=== PATIENT | female | born 1940 | race Caucasian/White ===

== ENCOUNTER 2017-10-07 09:16 | Inpatient (IN) ==
[2017-10-07 10:23] LABS: Mean Cell Volume 92.6 fL (80.0-100.0); Mean Corpuscular HGB Conc 33.9 g/dL (31.0-36.0); Mean Corpuscular Hemoglobin 31.4 pg (26.0-34.0); Platelet Count 252 K/mcL (140-440); RBC 4.73 M/mcL (4.00-5.20); Red Cell Distribution Width 13.5 % (11.5-14.5)
--- NOTE | 2017-10-07 10:28 | Cat Scan Report ---
CLINICAL INFORMATION: Trauma - on Plavix COMPARISON: 03/08/[address] TECHNIQUE: 2.5 mm helical slices were obtained in the skull base to vertex. Following reconstruction, axial reformatted images were reviewed at bone and parenchymal windows. The exam was performed using radiation dose optimization techniques including, but not limited to, automated exposure control, adjustment of the mA and/or kV according to patient size and use of iterative reconstruction technique. FINDINGS: The ventricles, sulci, fissures, and cisterns are symmetrically enlarged compatible with mild age-related atrophy. No subdural hemorrhage or other extra-axial fluid collections identified. Moderate chronic ischemic changes in the deep cerebral white matter similar previous study. There is no intracerebral hemorrhage, mass effect, edema or other acute finding. Bone windows show no fracture or other osseous abnormality IMPRESSION: Mild atrophy and chronic ischemic changes in the deep cerebral white matter typical for age and similar to previous study. There is no intracerebral hemorrhage or other post traumatic change. Interpreted and Authenticated by: Abdirahman Crawford 10/07/17
[2017-10-07 10:40] LABS: ALT/SGPT 9 U/l (0-40); Albumin 4.5 gm/dL (3.2-5.2); Alkaline Phosphatase 62 U/L (39-117); Blood Urea Nitrogen 31 mg/dl (8-23)
[2017-10-07 11:04] LABS: Lymphocytes % 6 % (15-49); Monocytes % (Manual) 2 % (1-12); Platelet Estimate NORMAL (NORMAL); RBC Morphology NORMAL (NORMAL); Segmented Neutrophils % 92 % (38-78)
--- NOTE | 2017-10-07 11:06 | Emergency Department Note ---
Fall HPI - General Chief Complaint: Fall Stated Complaint: Fall, Decreased LOC Time Seen by Provider: 10/07/17 11:02 Source: EMS Mode of arrival: EMS - History of Present Illness HPI Narrative: Patient fell this morning striking her commode. She was found by the rounding person at her care facility at [place]. She fell face first causing a laceration to the left side of her face and apparently the right shoulder was bruised as well. She has multiple other bruises older than not many new that are related to being on anticoagulation. After being found she was very spacey and unable to talk as usual. She was also unable to move where she usually could transfer from bed to commode. She is also been drooling. She has been frozen as if bent forward. She was unable to obey commands and for these reasons was sent to the emergency room. Now in the emergency room seems to be understanding and responding. Patient was able to communicate that she thinks she may have had a stroke. Yesterday her conversations were completely appropriate according to her caregiver her knows her well. Additional history was difficult to get from the patient, most of the above information was from the caregiver. She was not able to talk very much or in a volume that was understandable are audible. - Related Data Home Medications Medication Instructions Recorded Confirmed Anoro Ellipt 1 puff INH DAILY 08/15/17 10/07/17 Benztropine [Cogentin] 1 mg PO BID 08/15/17 10/07/17 Budesonide [Pulmicort] 3 puff INH BID 08/15/17 10/07/17 Calcium Carbonate 600 mg PO BID 08/15/17 10/07/17 Celecoxib [Celebrex] 100 mg PO HS 08/15/17 10/07/17 Cetirizine [ZyrTEC] 10 mg PO DAILY 08/15/17 10/07/17 Cholecalciferol (Vitamin D3) 4,000 unit PO DAILY 08/15/17 10/07/17 [Vitamin D] Clopidogrel Bisulfate [Plavix] 75 mg PO DAILY 08/15/17 10/07/17 Donepezil [Aricept] 10 mg PO DAILY 08/15/17 10/07/17 Famotidine [Pepcid] 20 mg PO DAILY 08/15/17 10/07/17 Gabapentin [Neurontin] 100 mg PO BID 08/15/17 10/07/17 Levalbuterol Tartrate 15 gm IH BID 08/15/17 10/07/17 [Levalbuterol Tartrate Hfa] Montelukast [Singular] 10 mg PO HS 08/15/17 10/07/17 OLANZapine [Zyprexa] 15 mg PO HS 08/15/17 10/07/17 Simvastatin [Zocor] 10 mg PO DAILY 08/15/17 10/07/17 Spironolactone [Aldactone] 25 mg PO DAILY 08/15/17 10/07/17 Verapamil [Calan Sr] 180 mg PO DAILY 08/15/17 10/07/17 Previous Rx's Medication Instructions Recorded acetaminophen 160 mg/5 mL oral See Dose Instructions PO .COMPLEX 04/20/15 suspension PRN 30 Days #900 ml lactase 9,000 unit chewable tablet 9,000 unit PO TID PRN #30 tab 05/23/15 traMADol [Ultram] 50 mg PO Q6HP PRN #20 tab 04/16/16 Allergies Allergy/AdvReac Type Severity Reaction Status Date / Time povidone-iodine Allergy Severe Unknown Verified 10/07/17 09:25 [From Betadine] soap [From Betadine] Allergy Severe Unknown Verified 10/07/17 09:25 Erythromycin Base Allergy Intermediate Vomiting Verified 10/07/17 09:25 Hydromorphone [From Dilaudid] Allergy Intermediate Unconscious Verified 09:25 levofloxacin [From Levaquin] Allergy Intermediate Vomiting Verified 10/07/17 09: 25 meperidine [From Demerol] Allergy Intermediate Unconscious Verified 10/07/17 09: 25 Penicillins Allergy Intermediate Vomiting Verified 10/07/17 09:25 pravastatin [From Pravachol] Allergy Intermediate Unknown Verified 10/07/17 09: 25 sertraline [From Zoloft] Allergy Intermediate Shakiness Verified 10/07/17 09:25 aspirin Allergy Mild Abdominal Verified 10/07/17 09:25 Pain Procaine [From Novocain] Allergy Mild Redness of Verified 10/07/17 09:25 Skin Sulfa (Sulfonamide Allergy Mild Redness of Verified 10/07/17 09:25 Antibiotics) Skin venlafaxine [From Effexor] Allergy Mild Shakiness Verified 12/19/17 09:25 Review of Systems Review of Systems: General: No reported fevers or chills. CV: No reported chest pains or palpitations. Pulmonary: No reported cough or shortness of breath. She does have some chronic phlegm in the back of her mouth related to nighttime mouth breathing and sounded gurgly this morning. She uses 2 L/min of oxygen at night during sleep. GI: No abdominal pain or nausea or vomiting. She does have some chronic constipation. Her last bowel movement 2 days ago was medium hard. : No reported dysuria. She does have some urge incontinence if she cannot make it in time. Derm: No new or unusual rashes. Neurologic: No newly reported headaches. See HPI in that she has had significant weakness today. Endocrine: Chronic fatigue. Pathology: Chronic ease of bruising. Older bruises on the anterior chest reportedly due to a water bottle that she drinks from that has a spout that sticks out and her severe tremors caused this. Fall PMH - Past Medical History [facility] Narrative: Patient was recently in and has no significant change in her past medical history that includes below. Medical history: Reports: arthritis, atrial fibrillation, cancer (cervical), CHF , COPD, dementia, hyperlipidemia, hypertension. Denies: coronary artery disease , CVA, diabetes, GERD, myocardial infarction, thyroid disease, TIA Reports: Parkinson's Disease Psychiatric history: Reports: anxiety, depression Family history: Reports: other (Acute [place] Father age 56; sister sudden cardiac 39.) - Social History smoking status: Former smoker Alcohol use: Reports: None Physical Exam General appearance: in no apparent distress, lethargic, other (Slowed responses and limited changes in facial expressions.) Head: atraumatic, normocephalic, other (She does have a 5 mm laceration at the anterior left cheekbone area underneath the left eye.) Eye: Present: normal appearance, PERRL, EOMI. Absent: scleral icterus, conjunctival injection ENT: mucous membranes dry, other (Moderate amount of thickened mucus in the posterior oropharynx running up and down.) Neck: Present: trachea midline Respiratory: Present: normal lung sounds bilaterally. Absent: respiratory distress, wheezes, stridor, accessory muscle use, prolonged expiratory phase Cardiovascular: Present: regular rate, normal rhythm. Absent: systolic murmur, diastolic murmur Abdominal: Present: soft. Absent: distention, tenderness, guarding, rebound, rigidity, organomegaly, mass Extremities: Absent: pedal edema, pretibial edema Neurological: Present: other (She states that she has normal sensation equal lateral on her forehead and sides of her cheeks when tested. Same for forearms. It is hard to get a response out of her for her lower extremities. She is able to move her toes but only some upon command but bilateral and equal. She seems to state that the sensation seems normal in both sides. She is able to plantar flex against resistance equally but hardly able to dorsiflex at all either side. She is unable to raise her knees on command. She is unable to squeeze my hands except for minimally bilaterally.) Psychiatric: Present: flat affect Skin: Present: warm, dry, other (Multiple contusions in various degrees of healing as well as ecchymoses, senile, and the forearms. There is a fresher bruise on the right AC joint area of the top of the right shoulder measuring 2 inches across. There is a 4-5 mm laceration on her anterior left cheek. This is repaired with cleaning and then with skin/glue adhesive.) Course Vital Signs Temperature 97.7 F 10/07/17 09:17 Pulse Rate 88 10/07/17 09:17 Respiratory Rate 14 10/07/17 09:17 Blood Pressure 188/105 10/07/17 09:17 Pulse Oximetry (%) 96 10/07/17 09:17 Temperature 97.7 F 10/07/17 09:17 Pulse Rate 77 10/07/17 11:31 Respiratory Rate 13 10/07/17 12:31 Blood Pressure 104/54 10/07/17 12:31 Pulse Oximetry (%) 94 10/07/17 11:31 Fall - MDM Narrative Medical decision making narrative: Above individual was brought to the emergency room with her caregiver with a significant change in her mental status, weakness new obtundation that seems to have resolved. There she was found to have an elevated white count, severe dehydration, significant weakness, and some intermittent bradycardia. She did not meet a sepsis or SIRS criteria with normal hypoxia, normal tension, and most of the time and a normal pulse rate. With the degree of severity of her changes, it was felt that it would be necessary for her to have slow hydration ( history of CHF), consideration for rule out ischemic CVA, or significant bradycardia. - Lab Data Result diagrams: 10/07/17 09:51 10/07/17 09:51 Lab Results 10/07/17 10/07/17 10/07/17 Range/Units 09:51 09:51 09:51 WBC 18.2 H (4.5-11.0) K/mcL RBC 4.73 (4.00-5.20) M/mcL Hgb 14.9 (12.0-15.0) g/dL Hct 43.8 (36.0-48.0) % MCV 92.6 (80.0-100.0) fL MCH 31.4 (26.0-34.0) pg MCHC 33.9 (31.0-36.0) g/dL RDW 13.5 (11.5-14.5) % Plt Count 252 (140-440) K/mcL MPV 9.9 (7.4-10.4) fL Total Counted 100 Seg Neutrophils % 92 H (38-78) % Band Neutrophils % Not Reportable Lymphocytes % 6 L (15-49) % Monocytes % (Manual) 2 (1-12) % Platelet Estimate Normal (NORMAL) RBC Morphology Normal (NORMAL) VBG Lactic Acid 1.7 (0.5-2.2) mmol/L Sodium 141 (133-145) mmol/L Potassium 4.0 (3.3-5.1) mmol/L Chloride 99 (96-108) mmol/L Carbon Dioxide 23 (22-30) mmol/L Anion Gap 19.0 H (8-16) BUN 31 H (8-23) mg/dl Creatinine 1.0 (0.6-1.1) mg/dl GFR Calculation 55 Glucose 127 H (70-105) mg/dL Calcium 10.9 H (8.6-10.4) mg/dl Total Bilirubin 0.8 (0.0-1.0) mg/dL AST 18 (0-37) U/l ALT 9 (0-40) U/l Alkaline Phosphatase 62 (39-117) U/L Total Protein 6.8 (5.9-8.4) gm/dL Albumin 4.5 (3.2-5.2) gm/dL Globulin 2.3 (2.2-3.7) gm/dL Albumin/Globulin Ratio 2.0 (1.0-2.3) Urine Color Urine Appearance Urine pH (5.0-9.0) Ur Specific [place] (1.000-1.035) Urine Protein (NEG) mg/dL Urine Glucose (UA) (NEG) mg/dL Urine Ketones (NEG) mg/dL Urine Occult Blood (<0.03) mg/dL Urine Nitrate (NEG) Urine Bilirubin (NEG) mg/dL Urine Urobilinogen (NEG) mg/dL Ur Leukocyte Esterase (NEG) /uL Urine RBC (0-1) /hpf Urine WBC (0-4) /hpf Ur Squamous Epith Cells (0-4) /hpf Amorphous Crystals (0) /hpf Urine Bacteria (0) /hpf Hyaline Casts (0-2) /lpf Urine Mucus (0) /hpf Ur Culture Indicated? 10/07/17 Range/Units 12:32 WBC (4.5-11.0) K/mcL RBC (4.00-5.20) M/mcL Hgb (12.0-15.0) g/dL Hct (36.0-48.0) % MCV (80.0-100.0) fL MCH (26.0-34.0) pg MCHC (31.0-36.0) g/dL RDW (11.5-14.5) % Plt Count (140-440) K/mcL MPV (7.4-10.4) fL Total Counted Seg Neutrophils % (38-78) % Band Neutrophils % Lymphocytes % (15-49) % Monocytes % (Manual) (1-12) % Platelet Estimate (NORMAL) RBC Morphology (NORMAL) VBG Lactic Acid (0.5-2.2) mmol/L Sodium (133-145) mmol/L Potassium (3.3-5.1) mmol/L Chloride (96-108) mmol/L Carbon Dioxide (22-30) mmol/L Anion Gap (8-16) BUN (8-23) mg/dl Creatinine (0.6-1.1) mg/dl GFR Calculation Glucose (70-105) mg/dL Calcium (8.6-10.4) mg/dl Total Bilirubin (0.0-1.0) mg/dL AST (0-37) U/l ALT (0-40) U/l Alkaline Phosphatase (39-117) U/L Total Protein (5.9-8.4) gm/dL Albumin (3.2-5.2) gm/dL Globulin (2.2-3.7) gm/dL Albumin/Globulin Ratio (1.0-2.3) Urine Color [place] Urine Appearance Hazy Urine pH 5.0 (5.0-9.0) Ur Specific [place] 1.028 (1.000-1.035) Urine Protein 100 A (NEG) mg/dL Urine Glucose (UA) Negative (NEG) mg/dL Urine Ketones 20 A (NEG) mg/dL Urine Occult Blood Neg (<0.03) mg/dL Urine Nitrate Neg (NEG) Urine Bilirubin Neg (NEG) mg/dL Urine Urobilinogen 2.0 A (NEG) mg/dL Ur Leukocyte Esterase Neg (NEG) /uL Urine RBC 0 (0-1) /hpf Urine WBC 2 (0-4) /hpf Ur Squamous Epith Cells 1 (0-4) /hpf Amorphous Crystals Few A (0) /hpf Urine Bacteria 0 (0) /hpf Hyaline Casts 24 H (0-2) /lpf Urine Mucus Many A (0) /hpf Ur Culture Indicated? No Disposition Pt seen by [employer]/PA only: No Clinical Impression: Weakness, Dehydration, Chronic atrial fibrillation, Parkinson disease, Bradycardia Mental status change Qualifiers: Altered mental status type: stupor Qualified Code(s): R40.1 - Stupor Leukocytosis Qualifiers: Leukocytosis type: leukemoid reaction Qualified Code(s): D72.823 - Leukemoid reaction Disposition: Xfer As Inpt ([facility]) Condition: Serious Referrals: Shayla Shen MD [Primary Care Provider] -
--- NOTE | 2017-10-07 12:11 | XRay Report ---
CLINICAL INFORMATION: Elevated white blood cell count COMPARISON: 08/15/2017 FINDINGS: Heart size, mediastinum and pulmonary vessels are normal. Lungs are clear. No effusions. Bones soft tissues normal IMPRESSION: Negative Interpreted and Authenticated by: Abdirahman Crawford 10/07/17
[2017-10-07 13:04] LABS: Appearance,Urine HAZY; Bacteria,Urine 0 /hpf (0); Bilirubin,Urine NEG (NEG); Color,Urine AMBER; Glucose,Urine (UA) NEGATIVE (NEG); Leukocyte Esterase,Urine NEG /uL (NEG); Mucus,Urine MANY /hpf (0); Nitrate,Urine NEG (NEG); Protein,Urine 100 mg/dL (NEG); Specific Gravity,Urine 1.028 (1.000-1.035); Urine Amorphous Crystals FEW /hpf (0); Urine Blood NEG mg/dL (<0.03); Urine Hyaline Cast 24 /lpf (0-2); Urine RBC 0 /hpf (0-1); Urine Squamous Epithelial Cell 1 /hpf (0-4); Urine WBC 2 /hpf (0-4)
--- NOTE | 2017-10-07 13:46 | Internal Med History&Physical ---
Medical - H&P: HPI Patient information: Note initiated : 10/07/17 at 1:39 pm Service Date, if different from initiated Date: [] Patient: Erica Gomez a 77 y/o F admitted on 10/07/17 for Fall, Decreased LOC. Chief Complaint: [] History of present illness: Ms. Gomez is a 77 year old female who lives at [facility]. She reportedly had a fall today in the bathroom, falling forward and hitting her face on the toilet. She was noted to have altered mental status by the staff, and sent to the emergency room for evaluation. She is much less able to talk and follow commands than is her baseline. After arriving to the floor, the patient was actually quite awake and alert, and able to answer most questions. She has a very severe tremor, both resting and with intention. She reports this is due to her severe Parkinson's. She does remember that she fell today, but cannot recall exactly why. She says she had a little trouble thinking straight after striking her head, but thinking is clearer currently. Her main complaint currently is that she is quite insistent that she needs MiraLAX right now, as she is constipated. She cannot tell me when her last bowel movement was. She says her urine has been darker than usual the last few days, but she denies decreased intake of food or liquids. She denies recent fever or chills, headaches or dizziness, blurry vision, ear pain or discharge, sinus pain, sore throat or cough. She denies chest pain or palpitations, shortness of breath. She says she is having some mild abdominal discomfort, which she blames on constipation. She denies nausea or vomiting, diarrhea, bright red blood per rectum. She denies painful urination. The ER MD tells me that the last time she was here, [facility] wanted her moved to a higher level of care, but the patient declined and requested physical therapy instead. Past medical history: Parkinson's disease, with severe tremor. COPD arthritis Atrial fibrillation Cervical cancer Congestive heart failure COPD Dementia? Cognitive dysfunction. Hyperlipidemia Hypertension Depression and anxiety Past surgical history: Appendectomy, MIRA/BSO, tonsillectomy Current medications: (Per recent neurology note and [facility] MAR) Anoro elliptica 62.525 Benztropine 1 mg nightly Calcium plus D1 tab twice daily Celebrex 100 mg nightly Cetirizine 10 mg daily Plavix 75 mg daily Cranberry tabs daily Aricept 10 mg daily Pepcid 20 mg daily next line gabapentin 100 mg twice daily Xopenex inhaler Pulmicort inhaler 3-4 puffs twice daily Singulair 10 mg nightly Mucinex 600 mg 1-2 twice daily as needed (Olanzapine recently changed to Depakote ?) Pramipexole 0.25 mg 3 times daily Simvastatin 10 mg half tab daily Spironolactone 25 mg half tab daily Tramadol 50 mg 3 times daily as needed Tums 500 mg 2 daily Verapamil 180 mg daily Vitamin D 2000 units daily Home oxygen? Acetaminophen liquid 80-160 mg every 4 hours as needed Dairy a 3000 units 3 times daily as needed Simethicone 125 mg as needed bloating limit to 4 per day Hutchinson's cough drops as needed Nitroglycerin 0.4 mg half tab sublingual as needed Tramadol 50 mg 3 times daily as needed Miconazole 2% powder applied twice daily as needed yeast infection Allergies: As noted below Family history: Father had NM at age 56. Sister had sudden at age 39. She believes her mother with cancer. Social history: Former smoker, saying she quit many years ago.. Does not use alcohol or drugs. Lives at [facility]. She reportedly has no family in the area. She says her only relative is her nephew who lives in [place]. She cannot recall his name at this moment. She would like him to act as her POA, but she does not have a formal living will. She is a retired nurse. Medical - H&P: Meds Home Medications Medication Instructions Recorded Confirmed Type acetaminophen 160 mg/5 mL oral See Dose Instructions PO .COMPLEX 04/20/15 Rx suspension PRN 30 Days #900 ml lactase 9,000 unit chewable tablet 9,000 unit PO TID PRN #30 tab 05/23/15 Rx traMADol [Ultram] 50 mg PO Q6HP PRN #20 tab 04/16/16 10/07/17 Rx Anoro Ellipt 1 puff INH DAILY 08/15/17 10/07/17 History Benztropine [Cogentin] 1 mg PO BID 08/15/17 10/07/17 History Budesonide [Pulmicort] 3 puff INH BID 08/15/17 10/07/17 History Calcium Carbonate 600 mg PO BID 08/15/17 10/07/17 History Celecoxib [Celebrex] 100 mg PO HS 08/15/17 10/07/17 History Cetirizine [ZyrTEC] 10 mg PO DAILY 08/15/17 10/07/17 History Cholecalciferol (Vitamin D3) 4,000 unit PO DAILY 08/15/17 10/07/17 History [Vitamin D] Clopidogrel Bisulfate [Plavix] 75 mg PO DAILY 08/15/17 10/07/17 History Donepezil [Aricept] 10 mg PO DAILY 08/15/17 10/07/17 History Famotidine [Pepcid] 20 mg PO DAILY 08/15/17 10/07/17 History Gabapentin [Neurontin] 100 mg PO BID 08/15/17 10/07/17 History Levalbuterol Tartrate 15 gm IH BID 08/15/17 10/07/17 History [Levalbuterol Tartrate Hfa] Montelukast [Singular] 10 mg PO HS 08/15/17 10/07/17 History OLANZapine [Zyprexa] 15 mg PO HS 08/15/17 10/07/17 History Simvastatin [Zocor] 10 mg PO DAILY 08/15/17 10/07/17 History Spironolactone [Aldactone] 25 mg PO DAILY 08/15/17 10/07/17 History Verapamil [Calan Sr] 180 mg PO DAILY 08/15/17 10/07/17 History Allergies Allergy/AdvReac Type Severity Reaction Status Date / Time povidone-iodine Allergy Severe Unknown Verified 10/07/17 09:25 [From Betadine] soap [From Betadine] Allergy Severe Unknown Verified 10/07/17 09:25 Erythromycin Base Allergy Intermediate Vomiting Verified 10/07/17 09:25 Hydromorphone [From Dilaudid] Allergy Intermediate Unconscious Verified 09:25 levofloxacin [From Levaquin] Allergy Intermediate Vomiting Verified 10/07/17 09: 25 meperidine [From Demerol] Allergy Intermediate Unconscious Verified 10/07/17 09: 25 Penicillins Allergy Intermediate Vomiting Verified 10/07/17 09:25 pravastatin [From Pravachol] Allergy Intermediate Unknown Verified 10/07/17 09: 25 sertraline [From Zoloft] Allergy Intermediate Shakiness Verified 10/07/17 09:25 aspirin Allergy Mild Abdominal Verified 10/07/17 09:25 Pain Procaine [From Novocain] Allergy Mild Redness of Verified 10/07/17 09:25 Skin Sulfa (Sulfonamide Allergy Mild Redness of Verified 10/07/17 09:25 Antibiotics) Skin venlafaxine [From Effexor] Allergy Mild Shakiness Verified 10/07/17 09:25 Medical - H&P: Exam - Constitutional Vitals: Temp Pulse Resp BP Pulse Ox 97.7 F 131 H 14 105/52 97 10/07/17 09:17 10/07/17 13:02 10/07/17 13:02 10/07/17 13:02 10/07/17 13:02 Heart rate 57-131. Blood pressure 113/71 to 188/105 On exam, the patient is awake and alert, but does seem a bit distressed by her severe upper extremity tremor. Head: Is normocephalic. There is a bruise and a laceration over her left zygoma. Ears: TMs and canals are clear. Eyes: Pupils are round and reactive, EOMI. Conjunctivae are injected. Pharynx: Appears clear. Mucosa is fairly normal in appearance. Dentition is in fair condition. neck: Shows no obvious JVD, lymphadenopathy, thyromegaly, bruits. Cardiac exam: Shows lightly irregular rhythm, without obvious murmurs, rubs, gallops. Lungs: She has generally decreased breath sounds, with scattered crackles. There are no definite rhonchi or wheezes heard. Abdomen: Is soft without obvious tenderness. Bowel sounds are active. There is no guarding or rebound. Extremities: Ankles are a bit puffy, but no significant edema. There is no cyanosis or clubbing noted. Neurologic exam: The patient is awake and alert, and answers most questions appropriately. The only question she really could not answer is the name of her nephew. She does have a masked feces, but otherwise cranial nerves appear grossly intact. Motor exam shows severe resting and intention tremor of both hands and arms. She has trouble lifting her arms to to a cerebellar exam. She appears to have generalized weakness. She has trouble lifting either leg, but can move her toes on command. Medical - H&P: Reslt - Labs CBC & Chem 7: 10/07/17 09:51 10/07/17 09:51 Labs: Short CBC 10/07/17 Range/Units 09:51 WBC 18.2 H (4.5-11.0) K/mcL Hgb 14.9 (12.0-15.0) g/dL Hct 43.8 (36.0-48.0) % Plt Count 252 (140-440) K/mcL BMP 10/07/17 09:51 Sodium 141 Potassium 4.0 Chloride 99 Carbon Dioxide 23 BUN 31 H Creatinine 1.0 Glucose 127 H Calcium 10.9 H Liver Function 10/07/17 Range/Units 09:51 Total Bilirubin 0.8 (0.0-1.0) mg/dL AST 18 (0-37) U/l ALT 9 (0-40) U/l Alkaline Phosphatase 62 (39-117) U/L Albumin 4.5 (3.2-5.2) gm/dL Urine 10/07/17 Range/Units 12:32 Urine Color Sallie Urine Appearance Hazy Urine pH 5.0 (5.0-9.0) Ur Specific [place] 1.028 (1.000-1.035) Urine Protein 100 A (NEG) mg/dL Urine Glucose (UA) Negative (NEG) mg/dL October 07: CBC: White blood cell count 18,000, hemoglobin 14.9, hematocrit 44, platelets 252,000. 92% neutrophils. Lactic acid is normal at 1.7 Pro-calcitonin is normal at less than 0.05 Chemistries: Notable for anion gap of 19, BUN of 31, creatinine 1.0, glucose 127 Total calcium is high at 10.9, other LFTs normal. Ionized calcium is normal at 1.24 BNP is elevated at 1366 Troponin is normal at less than 0.01 Urinalysis: Shows 100 mg of protein, 20 ketones, negative leukocyte esterase, negative nitrites, 24 hyaline casts. EKG: Shows atrial fibrillation with a rate of about 75. T waves are mildly inverted in leads V4 through V6. These changes are less marked when compared to August 15, 2017. Chest x-ray: Is read as no acute disease. Head CT: Shows mild atrophy and chronic ischemic changes typical for age. No hemorrhages. Medical - H&P: A/P (1) Atrial fibrillation, chronic Current visit: Yes Status: Chronic (2) COPD (chronic obstructive pulmonary disease) Current visit: No Status: Chronic (3) Parkinson disease, symptomatic Current visit: No Status: Chronic (4) Mental status change Current visit: Yes Status: Acute (5) Dehydration Current visit: Yes Status: Acute (6) Leukocytosis Current visit: Yes Status: Acute - Narrative A/P Narrative: #1. Neurologic. Patient presents with altered mental status. She has known Parkinson's disease and associated dementia, as well as depression and anxiety. Her mental status could be due to these conditions or the medication she takes for them. She could also have missed some Parkinson's medications and had worsening muscle rigidity causing her fall. Certainly occult infection may be the cause of mental status changes and leukocytosis. She does have some symptoms consistent with possible stroke. -Admit for closer monitoring and workup. - If other workup is unrevealing, consider MRI with flow studies to look at cerebral arterial flow and to look for signs of occult stroke. Level of alertness actually sounds quite a bit improved over what it was in the emergency room. -Blood and urine cultures are pending. -Consider repeat chest x-ray after hydration. -Consider empiric antibiotics, in view of leukocytosis. Alternatively, recheck CBC in the morning. -IV fluids for signs and symptoms of dehydration. -Serial neuro checks. -Case management consult regarding patient reportedly needing a higher level of care living situation. -Physical therapy and occupational therapy evaluations. -Parkinson's disease. Resume usual Parkinson's medications. It appears neurology suggested changing olanzapine to Depakote. It is not clear if that has been done at [facility] , so I will make that change today. (Olanzapine can actually cause parkinsonism ) History of dementia. -Continue Aricept. 2. Infectious disease. Rule out occult infection. -Blood and urine cultures are pending. Consider follow-up chest x-ray. 3. Cardiac. Chronic atrial fibrillation. -Monitor on telemetry. Reported history of CHF.-Stop Celebrex, as this is contraindicated in CHF. -Continue Plavix. Spironolactone is on hold regarding dehydration. Verapamil would be an unusual choice for someone with heart failure. Try to obtain old records, or consider follow-up echocardiogram. Hypertension. -Blood pressure is currently running a bit low. Continue to monitor. Resume the verapamil as tolerated. 4. Pulmonary. COPD and probable asthma. Hold inhalers. Add ipratropium, Xopenex, budesonide nebulizers. oxygen as needed, pulmonary toilet. 5. Allergies? Hold cetirizine for now. continue Singulair. 6. Psychiatric. I assume she is on Zyprexa for depression, or possibly for dementia related side effects. I will change this to Depakote, as per neurology. 7. CODE STATUS: Patient states she would like to remain a full code, but would not want to be on long-term life support. She says she would like her nephew, who lives in [place], to act as her POA. Unfortunately, she cannot recall his name at the moment. We are trying to track that down. 8. DVT prophylaxis: Subcu heparin. This visit took approximately 60 minutes, to review the patient's case with the ER MD, review her records and test results, interview and examine her, and write orders
[2017-10-07] MEDS ORDERED: DOCUSATE SODIUM 100 MG CAPSULE PO PRN (14:09)
[2017-10-07] MEDS ORDERED: ACETAMINOPHEN 325 MG TABLET PO PRN (14:09)
[2017-10-07] MEDS ORDERED: ONDANSETRON 4 MG/2 ML VIAL IV PRN (14:09)
[2017-10-07] MEDS ORDERED: MAGNESIUM HYDROXIDE 30 ML ORAL.SUSP PO PRN (14:09)
[2017-10-07] MEDS: DEXTROSE 5%-1/2NS 1,000 ML IV SCH (14:28)
[2017-10-07] MEDS ORDERED: LACTASE 1 TABLET PO PRN (15:00)
[2017-10-07] MEDS: traMADol 50 MG TABLET PO PRN ×2 (15:12→19:57)
[2017-10-07] MEDS ORDERED: MAGNESIUM HYDROXIDE 30 ML ORAL.SUSP PO ONE (16:46)
[2017-10-07] MEDS ORDERED: POLYETHYLENE GLYCOL 3350 17 GM PACKET PO PRN (16:47)
[2017-10-07] MEDS: BUDESONIDE 0.5 MG/2 ML AMPUL.NEB NEB SCH (19:14)
[2017-10-07] MEDS: LEVALBUTEROL 0.63 MG/3 ML AMPUL.NEB NEB SCH (19:14)
[2017-10-07] MEDS: IPRATROPIUM 2.5 ML AMPUL.NEB NEB SCH (19:14)
[2017-10-07] MEDS: CALCIUM CARBONATE 500 MG TAB.CHEW CHEWED SCH (19:57)
[2017-10-07] MEDS: DIVALPROEX SODIUM 250 MG TAB.ER.24H PO SCH (19:57)
[2017-10-07] MEDS: GABAPENTIN 100 MG CAPSULE PO SCH (19:57)
[2017-10-07] MEDS: BENZTROPINE 1 MG TABLET PO SCH (19:58)
[2017-10-07] MEDS: HEPARIN 5,000 UNIT/ML VIAL SQ SCH ×2 (19:58→20:17)
[2017-10-07] MEDS: MONTELUKAST 10 MG TABLET PO SCH (22:35)
[2017-10-07] MEDS: CELECOXIB 100 MG CAPSULE PO SCH (22:35)
[2017-10-08] MEDS: DEXTROSE 5%-1/2NS 1,000 ML IV SCH ×3 (00:37→20:33)
[2017-10-08] MEDS: LEVALBUTEROL 0.63 MG/3 ML AMPUL.NEB NEB SCH ×4 (01:01→19:25)
[2017-10-08] MEDS: IPRATROPIUM 2.5 ML AMPUL.NEB NEB SCH ×4 (01:01→19:25)
[2017-10-08] MEDS: BUDESONIDE 0.5 MG/2 ML AMPUL.NEB NEB SCH ×3 (06:58→19:25)
--- NOTE | 2017-10-08 08:02 | XRay Report ---
CLINICAL INFORMATION: Elevated white blood cell count COMPARISON: 10/07/2017 FINDINGS: Heart size, mediastinum and pulmonary vessels are normal. Lungs are clear - no infiltrates have developed. No effusions. IMPRESSION: Negative Interpreted and Authenticated by: Abdirahman Crawford 10/08/17
[2017-10-08 08:47] LABS: Basophils # (Auto) 0 K/mcL (0.0-0.3); Basophils % (Auto) 0.6 % (0.0-2.0); Eosinophils # (Auto) 0.1 K/mcL (0.0-0.7); Lymphocytes % (Auto) 26.3 % (15.5-49.0); Mean Cell Volume 91.2 fL (80.0-100.0); Mean Corpuscular HGB Conc 34.2 g/dL (31.0-36.0); Mean Corpuscular Hemoglobin 31.1 pg (26.0-34.0); Monocytes # (Auto) 0.7 K/mcL (0.1-0.9); Monocytes % (Auto) 9.1 % (1.0-12.0); Platelet Count 155 K/mcL (140-440); RBC 4.13 M/mcL (4.00-5.20); Red Cell Distribution Width 13.3 % (11.5-14.5)
[2017-10-08] MEDS ORDERED: VERAPAMIL 180 MG TAB.XL.24H PO SCH (09:00)
[2017-10-08 09:11] LABS: ALT/SGPT 12 U/l (0-40); Albumin 3.2 gm/dL (3.2-5.2); Alkaline Phosphatase 41 U/L (39-117); Bilirubin,Direct < 0.2 mg/dL (0.0-0.3); Blood Urea Nitrogen 17 mg/dl (8-23); Gamma Glutamyl Transpeptidase 4 U/L (5-36); Magnesium 1.7 mg/dL (1.6-2.5); Uric Acid 4.9 mg/dL (2.5-8.0)
[2017-10-08] MEDS ORDERED: PNEUMOCOCCAL 23-VAL P-SAC VAC 0.5 ML VIAL IM ONE (10:00)
--- NOTE | 2017-10-08 10:13 | Internal Med Progress Note ---
Medical - PN: Subj Patient information: Note initiated : 10/08/17 at 10:13 am Service Date, if different from initiated Date: [] Patient: Erica Gomez a 77 y/o F admitted on 10/07/17 for Fall, Decreased LOC. Chief Complaint: [] Interval history: October 07, 2017: History of present illness: Ms. Gomez is a 77 year old female who lives at [facility]. She reportedly had a fall today in the bathroom, falling forward and hitting her face on the toilet. She was noted to have altered mental status by the staff, and sent to the emergency room for evaluation. She is much less able to talk and follow commands than is her baseline. After arriving to the floor, the patient was actually quite awake and alert, and able to answer most questions. She has a very severe tremor, both resting and with intention. She reports this is due to her severe Parkinson's. She does remember that she fell today, but cannot recall exactly why. She says she had a little trouble thinking straight after striking her head, but thinking is clearer currently. Her main complaint currently is that she is quite insistent that she needs MiraLAX right now, as she is constipated. She cannot tell me when her last bowel movement was. She says her urine has been darker than usual the last few days, but she denies decreased intake of food or liquids. She denies recent fever or chills, headaches or dizziness, blurry vision, ear pain or discharge, sinus pain, sore throat or cough. She denies chest pain or palpitations, shortness of breath. She says she is having some mild abdominal discomfort, which she blames on constipation. She denies nausea or vomiting, diarrhea, bright red blood per rectum. She denies painful urination. The ER MD tells me that the last time she was here, [facility] wanted her moved to a higher level of care, but the patient declined and requested physical therapy instead. October 08: -Today, the patient says she is feeling a bit better. She does not feel confused today. She admits that she has not been doing so well at her living facility and that she may need more help. She says that yesterday she did not call staff to help her get out of bed to go to the bathroom, and she thinks she fell because she did not have that help. She is not quite sure why she did not call for help. -She had some abdominal discomfort last night, and they did a bladder scan which showed greater than a 500 mL of retained urine. There were getting ready to place a Ocasio catheter, and the patient was suddenly incontinent of urine, and then her post void was only about 100 mL. She is not normally incontinent of urine. -Otherwise today, she denies fever or chills, chest pain or shortness of breath , cough, nausea or vomiting, diarrhea. She does not believe she has had a bowel movement yet, and requests a half dose of MiraLAX today. White blood cell count is back to normal this morning. However potassium is now a bit high - Constitutional Vitals: Vital Signs Temp Pulse Resp BP Pulse Ox 98.2 F 88 16 91/51 98 10/08/17 04:02 10/08/17 07:03 10/08/17 07:03 10/08/17 04:02 10/08/17 07:03 Period Temp Pulse Resp BP Sys/Cobos Pulse Ox Last 24 Hr 97.3 F-98.2 F 70-131 13-21 91-146/51-90 94-100 Intake and Output 10/07/17 10/08/17 10/08/17 21:59 05:59 13:59 Intake Total 240 / 240 1120 / 1120 Balance 240 / 240 1120 / 1120 Weight 125 lb 6.4 oz Intake & Output: Intake & Output 10/07/17 10/08/17 10/08/17 21:59 05:59 13:59 Intake Total 240 / 240 1120 / 1120 Balance 240 / 240 1120 / 1120 Weight 125 lb 6.4 oz Intake: IV 1000 / 1000 Dextrose 5%-1/2Ns IV Solution 1 1000 / 1000 ,000 ml @ 100 mls/hr IV .Q10H [facility]O Rx#:[id number] Oral 240 / 240 120 / 120 Other: # Voids 1 On exam, she is a frail elderly female in no acute distress currently. She continues to have significant resting tremor, but it does not appear as violent as it was last night. She also has significant intention tremor, and her chest is quite bruised, staff thinks from hitting herself in the chest repeatedly while holding a cup, due to the tremor. Neck shows no obvious lymphadenopathy or JVD. Cardiac exam shows a slightly irregular rhythm. Lungs: Show generally decreased breath sounds, without definite rales, rhonchi, wheezes. Abdomen is soft and nontender. Extremities: Are slightly puffy, but without significant pitting edema. Neurologic exam: The patient is awake and alert, and answers questions appropriately. She has quite a bit of difficulty with her motor control of her arms. She has needed help feeding herself here in the hospital. Medical - PN: Obj Da - Labs CBC & Chem 7: 10/08/17 07:55 10/08/17 07:55 Labs: Abnormal Lab Results 10/08/17 10/07/17 10/07/17 07:55 12:32 09:51 WBC Seg Neutrophils % Lymphocytes % Potassium 5.2 H Carbon Dioxide 21 L Anion Gap BUN Creatinine 0.5 L Glucose 114 H Calcium 8.4 L Phosphorus 2.4 L GGT 4 L AST 38 H Lactate Dehydrogenase 344 H NT-Pro-B Natriuret Pep 1366.0 H Total Protein 4.8 L Globulin 1.6 L Urine Protein 100 A Urine Ketones 20 A Urine Urobilinogen 2.0 A Amorphous Crystals Few A Hyaline Casts 24 H Urine Mucus Many A 10/07/17 10/07/17 09:51 09:51 WBC 18.2 H Seg Neutrophils % 92 H Lymphocytes % 6 L Potassium Carbon Dioxide Anion Gap 19.0 H BUN 31 H Creatinine Glucose 127 H Calcium 10.9 H Phosphorus GGT AST Lactate Dehydrogenase NT-Pro-B Natriuret Pep Total Protein Globulin Urine Protein Urine Ketones Urine Urobilinogen Amorphous Crystals Hyaline Casts Urine Mucus October 08: Blood cultures: 1 of 4 bottles is growing gram-positive cocci. ID pending. Chest x-ray: Shows no infiltrates. October 07: CBC: White blood cell count 18,000, hemoglobin 14.9, hematocrit 44, platelets 252,000. 92% neutrophils. Lactic acid is normal at 1.7 Pro-calcitonin is normal at less than 0.05 Chemistries: Notable for anion gap of 19, BUN of 31, creatinine 1.0, glucose 127 Total calcium is high at 10.9, other LFTs normal. Ionized calcium is normal at 1.24 BNP is elevated at 1366 Troponin is normal at less than 0.01 Urinalysis: Shows 100 mg of protein, 20 ketones, negative leukocyte esterase, negative nitrites, 24 hyaline casts. EKG: Shows atrial fibrillation with a rate of about 75. T waves are mildly inverted in leads V4 through V6. These changes are less marked when compared to August 15, 2017. Chest x-ray: Is read as no acute disease. Head CT: Shows mild atrophy and chronic ischemic changes typical for age. No hemorrhages. Meds: Medications Acetaminophen (Tylenol) 650 mg PO Q6HP PRN PRN Reason: PAIN/FEVER > 101 Benztropine Mesylate (Cogentin) 1 mg PO BID [facility] Last Admin: 10/07/17 19:58 Dose: 1 mg Budesonide (Pulmicort) 0.5 mg NEB Q12 [facility] Last Admin: 10/08/17 06:58 Dose: 0.5 mg Calcium Carbonate/Glycine (Tums) 500 mg CHEWED BID [facility] Last Admin: 10/07/17 19:57 Dose: 500 mg Celecoxib (Celebrex) 100 mg PO HS [facility] Last Admin: 10/07/17 22:35 Dose: Not Given Cetirizine HCl (Zyrtec) 10 mg PO DAILY [facility] Clopidogrel Bisulfate (Plavix) 75 mg PO DAILY [facility] Divalproex Sodium (Depakote Er) 250 mg PO BID [facility] Last Admin: 10/07/17 19:57 Dose: 250 mg Docusate Sodium (Colace) 100 mg PO BID PRN PRN Reason: Constipation Donepezil HCl (Aricept) 10 mg PO DAILY [facility] Famotidine (Pepcid) 20 mg PO DAILY [facility] Gabapentin (Neurontin) 100 mg PO BID [facility] Last Admin: 10/07/17 19:57 Dose: 100 mg Heparin Sodium (Porcine) (Heparin) 5,000 unit SQ Q12 [facility] Last Admin: 10/07/17 20:17 Dose: Not Given Dextrose/Sodium Chloride (Dextrose 5%-1/2ns Iv Solution) 1,000 mls @ 100 mls/ hr IV .Q10H [facility] Last Admin: 10/08/17 00:37 Dose: 100 mls/hr Ipratropium [place] (Atrovent) 2.5 ml NEB Q6HRT [facility] Last Admin: 10/08/17 06:58 Dose: 2.5 ml Lactase (Lactaid) 1 tab PO TIDP PRN PRN Reason: INDIGESTION Levalbuterol HCl (Xopenex) 0.63 mg NEB Q6HRT [facility] Last Admin: 10/08/17 06:58 Dose: 0.63 mg Magnesium Hydroxide (Milk Of Magnesia) 30 ml PO DAILYP PRN PRN Reason: Constipation Montelukast Sodium (Singular) 10 mg PO HS [facility] Last Admin: 10/07/17 22:35 Dose: Not Given Ondansetron HCl (Zofran) 4 mg IV Q4HP PRN PRN Reason: Nausea And Vomiting Polyethylene Glycol (Miralax) 17 gm PO DAILYP PRN PRN Reason: Constipation Simvastatin (Zocor) 10 mg PO DAILY [facility] Tramadol HCl (Ultram) 50 mg PO Q6HP PRN PRN Reason: Pain Last Admin: 10/07/17 19:57 Dose: 50 mg Verapamil HCl (Calan Sr) 180 mg PO DAILY [facility] Vitamin D (Vitamin D3) 4,000 unit PO DAILY [facility] Medical - PN: A/P - Time Spent With Patient Total time spent is greater than 50% in coordination of care (as documented) at patient's floor/unit and/or counseling patient: 25 - 35 minutes (1) Atrial fibrillation, chronic Status: Chronic Current Visit: Yes (2) COPD (chronic obstructive pulmonary disease) Status: Chronic Current Visit: No (3) Parkinson disease, symptomatic Status: Chronic Current Visit: No (4) Mental status change Status: Acute Current Visit: Yes (5) Dehydration Status: Acute Current Visit: Yes (6) Leukocytosis Status: Acute Current Visit: Yes - Narrative A/P Narrative: #1. Neurologic. Patient presents with altered mental status. She has known Parkinson's disease and associated dementia, as well as depression and anxiety. Her mental status could be due to these conditions or the medication she takes for them. She could also have missed some Parkinson's medications and had worsening muscle rigidity causing her fall. Certainly occult infection may be the cause of mental status changes and leukocytosis. She does have some symptoms consistent with possible stroke. -The patient was admitted and monitored on telemetry overnight. Her mental status appears to have cleared. She is still extremely weak. She did receive IV fluids overnight, and dehydration appears improved. Physical therapy finds her to be very weak as well, and says she will definitely need rehab prior to consideration of returning home to live alone. -Blood and urine cultures are pending. -Repeat chest x-ray does not show signs of pneumonia. -White blood cell count has returned to normal, without antibiotics.. -IV fluids for signs and symptoms of dehydration. -Serial neuro checks. -Case management consult regarding patient reportedly needing a higher level of care living situation. -Physical therapy and occupational therapy evaluations, ongoing. -Parkinson's disease. Resume usual Parkinson's medications. It appears neurology suggested changing olanzapine to Depakote. It is not clear if that has been done at [facility] , so I will make that change today. (Olanzapine can actually cause parkinsonism ) History of dementia. -Continue Aricept. 2. Infectious disease. Rule out occult infection. -Blood and urine cultures are pending. Follow-up chest x-ray looks okay. 3. Cardiac. Chronic atrial fibrillation. -Monitor on telemetry. Reported history of CHF.-Stop Celebrex, as this is contraindicated in CHF. -Continue Plavix. Spironolactone is on hold regarding dehydration. Verapamil would be an unusual choice for someone with heart failure. Try to obtain old records, or consider follow-up echocardiogram. Hypertension. -Blood pressure is currently running a bit low. Continue to monitor. Resume the verapamil as tolerated. 4. Pulmonary. COPD and probable asthma. Hold inhalers. Add ipratropium, Xopenex, budesonide nebulizers. oxygen as needed, pulmonary toilet. 5. Allergies? Hold cetirizine for now. continue Singulair. 6. Psychiatric. I assume she is on Zyprexa for depression, or possibly for dementia related side effects. I will change this to Depakote, as per neurology. 7. CODE STATUS: Patient states she would like to remain a full code, but would not want to be on long-term life support. She says she would like her nephew, who lives in [place], to act as her POA. Unfortunately, she cannot recall his name at the moment. We are trying to track that down. 8. DVT prophylaxis: Subcu heparin. Medical - PN: Qual - Stroke Symptom Onset Unknown: No - VTE Deep Vein Thrombosis/Pulmonary Embolism Present on Admission: No
[2017-10-08] MEDS: traMADol 50 MG TABLET PO PRN ×2 (10:19→19:53)
[2017-10-08] MEDS: GABAPENTIN 100 MG CAPSULE PO SCH ×2 (10:22→21:16)
[2017-10-08] MEDS: HEPARIN 5,000 UNIT/ML VIAL SQ SCH ×2 (10:22→21:17)
[2017-10-08] MEDS: SIMVASTATIN 10 MG TABLET PO SCH (10:22)
[2017-10-08] MEDS: FAMOTIDINE 20 MG TABLET PO SCH (10:22)
[2017-10-08] MEDS: VITAMIN D3 1,000 UNIT TABLET PO SCH (10:22)
[2017-10-08] MEDS: DIVALPROEX SODIUM 250 MG TAB.ER.24H PO SCH ×2 (10:22→21:16)
[2017-10-08] MEDS: CALCIUM CARBONATE 500 MG TAB.CHEW CHEWED SCH ×2 (10:22→21:16)
[2017-10-08] MEDS: CLOPIDOGREL 75 MG TABLET PO SCH (10:22)
[2017-10-08] MEDS: BENZTROPINE 1 MG TABLET PO SCH ×2 (10:22→21:16)
[2017-10-08] MEDS: CETIRIZINE 10 MG TABLET PO SCH (10:22)
[2017-10-08] MEDS: DONEPEZIL 10 MG TABLET PO SCH (10:23)
[2017-10-08] MEDS ORDERED: VANCOMYCIN 1,000 MG in 0.9 % SODIUM CHLORIDE 250 ML IV ONE (18:30)
[2017-10-08] MEDS ORDERED: VANCOMYCIN 1 GM VIAL ONE (20:27)
[2017-10-08] MEDS: MONTELUKAST 10 MG TABLET PO SCH (21:16)
[2017-10-08] MEDS: CELECOXIB 100 MG CAPSULE PO SCH (21:28)
[2017-10-09] MEDS: IPRATROPIUM 2.5 ML AMPUL.NEB NEB SCH ×4 (01:05→19:12)
[2017-10-09] MEDS: LEVALBUTEROL 0.63 MG/3 ML AMPUL.NEB NEB SCH ×4 (01:05→19:13)
[2017-10-09] MEDS: traMADol 50 MG TABLET PO PRN ×2 (04:49→21:52)
[2017-10-09 06:16] LABS: Basophils # (Auto) 0.1 K/mcL (0.0-0.3); Basophils % (Auto) 0.7 % (0.0-2.0); Eosinophils # (Auto) 0.2 K/mcL (0.0-0.7); Granulocytes % (Auto) 61.2 % (38.0-78.0); Lymphocytes # (Auto) 2.4 K/mcL (1.5-4.8); Lymphocytes % (Auto) 28.8 % (15.5-49.0); Mean Cell Volume 92.7 fL (80.0-100.0); Mean Corpuscular Hemoglobin 31.5 pg (26.0-34.0); Monocytes # (Auto) 0.6 K/mcL (0.1-0.9); Monocytes % (Auto) 7.3 % (1.0-12.0); Platelet Count 179 K/mcL (140-440); RBC 4.09 M/mcL (4.00-5.20); Red Cell Distribution Width 13.1 % (11.5-14.5)
[2017-10-09 06:46] LABS: ALT/SGPT 13 U/l (0-40); Albumin 3.4 gm/dL (3.2-5.2); Albumin/Globulin Ratio 2.3 (1.0-2.3); Alkaline Phosphatase 46 U/L (39-117); Bilirubin,Direct < 0.2 mg/dL (0.0-0.3); Blood Urea Nitrogen 9 mg/dl (8-23); Gamma Glutamyl Transpeptidase 4 U/L (5-36); Magnesium 1.9 mg/dL (1.6-2.5); Uric Acid 4.5 mg/dL (2.5-8.0)
[2017-10-09] MEDS: BUDESONIDE 0.5 MG/2 ML AMPUL.NEB NEB SCH ×2 (07:47→21:12)
[2017-10-09] MEDS ORDERED: VANCOMYCIN PER PHARMACY IV SCH (07:56)
[2017-10-09] MEDS ORDERED: VANCOMYCIN 1,000 MG in 0.9 % SODIUM CHLORIDE 250 ML IV SCH (09:00)
[2017-10-09] MEDS: DEXTROSE 5%-1/2NS 1,000 ML IV SCH ×2 (10:17→17:56)
[2017-10-09] MEDS: HEPARIN 5,000 UNIT/ML VIAL SQ SCH ×3 (10:18→21:17)
[2017-10-09] MEDS: DIVALPROEX SODIUM 250 MG TAB.ER.24H PO SCH ×2 (10:18→21:12)
[2017-10-09] MEDS: VITAMIN D3 1,000 UNIT TABLET PO SCH (10:19)
[2017-10-09] MEDS: GABAPENTIN 100 MG CAPSULE PO SCH ×2 (10:19→21:12)
[2017-10-09] MEDS: CETIRIZINE 10 MG TABLET PO SCH (10:20)
[2017-10-09] MEDS: CLOPIDOGREL 75 MG TABLET PO SCH (10:20)
[2017-10-09] MEDS: CALCIUM CARBONATE 500 MG TAB.CHEW CHEWED SCH ×4 (10:20→21:57)
[2017-10-09] MEDS: FAMOTIDINE 20 MG TABLET PO SCH (10:20)
[2017-10-09] MEDS: SIMVASTATIN 10 MG TABLET PO SCH (10:20)
[2017-10-09] MEDS: DONEPEZIL 10 MG TABLET PO SCH (10:20)
[2017-10-09] MEDS: BENZTROPINE 1 MG TABLET PO SCH ×2 (10:20→21:12)
[2017-10-09] MEDS ORDERED: POLYETHYLENE GLYCOL 3350 17 GM PACKET PO ONE (10:29)
[2017-10-09] MEDS: VERAPAMIL 120 MG TAB.XL.24H PO SCH (10:30)
--- NOTE | 2017-10-09 10:36 | XRay Report ---
CLINICAL INFORMATION: Trauma COMPARISON: 02/24/2015 FINDINGS: No fracture or other osseous abnormality identified. Mild SI joint degeneration noted. Both hip joints are normal in width and alignment. Moderate L5-S1 degenerative disease seen as before. No significant soft tissue abnormality IMPRESSION: No evidence of fracture. Mild SI degeneration Interpreted and Authenticated by: Abdirahman Crawford 10/09/17
--- NOTE | 2017-10-09 10:51 | Internal Med Progress Note ---
Medical - PN: Subj Patient information: Note initiated : 10/09/17 at 10:44 am Service Date, if different from initiated Date: [] Patient: Erica Gomez a 77 y/o F admitted on 10/07/17 for Fall, Decreased LOC/ AFib, Leukocytosis,Dehydration. Chief Complaint: [] Interval history: October 07, 2017: History of present illness: Ms. Gomez is a 77 year old female who lives at [facility]. She reportedly had a fall today in the bathroom, falling forward and hitting her face on the toilet. She was noted to have altered mental status by the staff, and sent to the emergency room for evaluation. She is much less able to talk and follow commands than is her baseline. After arriving to the floor, the patient was actually quite awake and alert, and able to answer most questions. She has a very severe tremor, both resting and with intention. She reports this is due to her severe Parkinson's. She does remember that she fell today, but cannot recall exactly why. She says she had a little trouble thinking straight after striking her head, but thinking is clearer currently. Her main complaint currently is that she is quite insistent that she needs MiraLAX right now, as she is constipated. She cannot tell me when her last bowel movement was. She says her urine has been darker than usual the last few days, but she denies decreased intake of food or liquids. She denies recent fever or chills, headaches or dizziness, blurry vision, ear pain or discharge, sinus pain, sore throat or cough. She denies chest pain or palpitations, shortness of breath. She says she is having some mild abdominal discomfort, which she blames on constipation. She denies nausea or vomiting, diarrhea, bright red blood per rectum. She denies painful urination. The ER MD tells me that the last time she was here, [facility] wanted her moved to a higher level of care, but the patient declined and requested physical therapy instead. October 08: -Today, the patient says she is feeling a bit better. She does not feel confused today. She admits that she has not been doing so well at her living facility and that she may need more help. She says that yesterday she did not call staff to help her get out of bed to go to the bathroom, and she thinks she fell because she did not have that help. She is not quite sure why she did not call for help. -She had some abdominal discomfort last night, and they did a bladder scan which showed greater than a 500 mL of retained urine. There were getting ready to place a Ocasio catheter, and the patient was suddenly incontinent of urine, and then her post void was only about 100 mL. She is not normally incontinent of urine. -Otherwise today, she denies fever or chills, chest pain or shortness of breath , cough, nausea or vomiting, diarrhea. She does not believe she has had a bowel movement yet, and requests a half dose of MiraLAX today. White blood cell count is back to normal this morning. However potassium is now a bit high Dec 21 Patient seen examined, feeling not so good, her buttock was hurting her, denies any other complaints, still has some constipation, asked for another miralax. She is having poor oral intake and was not doing so well before she came in, will continue with rehab and do a calorie count to see if she is having adequate intake. Will consider appetite stimulants. Pertinent ROS: Denies headache, dizziness Denies chest pain, palpitations Denies cough or shortness of breath Denies abdominal pain, nausea or vomiting. - Constitutional Vitals: Vital Signs Temp Pulse Resp BP Pulse Ox 97.6 F 94 H 24 H 132/87 99 10/09/17 04:00 10/09/17 07:59 10/09/17 07:59 10/09/17 04:00 10/09/17 07:59 Period Temp Pulse Resp BP Sys/Cobos Pulse Ox Last 24 Hr 97.6 F-98.4 F 40-98 14-24 117-133/61-112 95-100 Intake and Output 10/08/17 10/09/17 10/09/17 21:59 05:59 13:59 Intake Total 1000 / 1000 1000 / 1000 Output Total 1375 / 1375 Balance 998 / 998 -1375 / -1375 1000 / 1000 Weight 124 lb 14.4 oz Intake & Output: Intake & Output 10/08/17 10/09/17 10/09/17 21:59 05:59 13:59 Intake Total 1000 / 1000 1000 / 1000 Output Total 2 / 2 1375 / 1375 Balance 998 / 998 -1375 / -1375 1000 / 1000 Weight 124 lb 14.4 oz Intake: IV 1000 / 1000 1000 / 1000 Dextrose 5%-1/2Ns IV Solution 1 1000 / 1000 1000 / 1000 ,000 ml @ 100 mls/hr IV .Q10H [facility] Rx#:[id number] Output: Urine Catheter Amount 1375 / 1375 # of times incontinent of urine 2 / 2 Exam: Constitutional; Afebrile, cooperative, alert, not in distress. Eyes- No icterus, , No periorbital swelling Ears- Ext ear normal, hearing normal to conversation. Neck- Midline trachea, supple Respiratory system: Air Entry equal on both sides, No crackles or wheezing, no rhonchi. CVS- Rate rhythm regular, S1,S2 heard, no gallop, no rub. Abdomen- Soft nontender abdomen, no organomegaly, no tenderness, no guarding or rigidity, [employer]- AOOx3, moving all extremities, no gross focal deficit noted. gross tremor from parkinsons noted. Medical - PN: Obj Da - Labs CBC & Chem 7: 10/09/17 03:55 10/09/17 03:55 Labs: Abnormal Lab Results 10/09/17 10/08/17 10/07/17 03:55 07:55 12:32 WBC Seg Neutrophils % Lymphocytes % Potassium 5.2 H Carbon Dioxide 21 L Anion Gap BUN Creatinine 0.5 L 0.5 L Glucose 114 H Calcium 8.4 L Phosphorus 2.1 L 2.4 L GGT 4 L 4 L AST 38 H Lactate Dehydrogenase 344 H NT-Pro-B Natriuret Pep Total Protein 4.9 L 4.8 L Globulin 1.5 L 1.6 L Urine Protein 100 A Urine Ketones 20 A Urine Urobilinogen 2.0 A Amorphous Crystals Few A Hyaline Casts 24 H Urine Mucus Many A 10/07/17 10/07/17 10/07/17 09:51 09:51 09:51 WBC 18.2 H Seg Neutrophils % 92 H Lymphocytes % 6 L Potassium Carbon Dioxide Anion Gap 19.0 H BUN 31 H Creatinine Glucose 127 H Calcium 10.9 H Phosphorus GGT AST Lactate Dehydrogenase NT-Pro-B Natriuret Pep 1366.0 H Total Protein Globulin Urine Protein Urine Ketones Urine Urobilinogen Amorphous Crystals Hyaline Casts Urine Mucus Meds: Medications Acetaminophen (Tylenol) 650 mg PO Q6HP PRN PRN Reason: PAIN/FEVER > 101 Benztropine Mesylate (Cogentin) 1 mg PO BID [facility] Last Admin: 10/09/17 10:20 Dose: 1 mg Budesonide (Pulmicort) 0.5 mg NEB Q12 [facility] Last Admin: 10/09/17 07:47 Dose: 0.5 mg Calcium Carbonate/Glycine (Tums) 500 mg CHEWED BID [facility] Last Admin: 10/09/17 10:20 Dose: 500 mg Celecoxib (Celebrex) 100 mg PO HS [facility] Last Admin: 10/08/17 21:28 Dose: Not Given Cetirizine HCl (Zyrtec) 10 mg PO DAILY [facility] Last Admin: 10/09/17 10:20 Dose: 10 mg Clopidogrel Bisulfate (Plavix) 75 mg PO DAILY [facility] Last Admin: 10/09/17 10:20 Dose: 75 mg Divalproex Sodium (Depakote Er) 250 mg PO BID [facility] Last Admin: 10/09/17 10:18 Dose: 250 mg Docusate Sodium (Colace) 100 mg PO BID PRN PRN Reason: Constipation Donepezil HCl (Aricept) 10 mg PO DAILY [facility] Last Admin: 10/09/17 10:20 Dose: 10 mg Famotidine (Pepcid) 20 mg PO DAILY [facility] Last Admin: 10/09/17 10:20 Dose: 20 mg Gabapentin (Neurontin) 100 mg PO BID [facility] Last Admin: 10/09/17 10:19 Dose: 100 mg Heparin Sodium (Porcine) (Heparin) 5,000 unit SQ Q12 [facility] Last Admin: 10/09/17 10:18 Dose: 5,000 unit Dextrose/Sodium Chloride (Dextrose 5%-1/2ns Iv Solution) 1,000 mls @ 100 mls/ hr IV .Q10H [facility] Last Admin: 10/09/17 10:17 Dose: 100 mls/hr Ipratropium [place] (Atrovent) 2.5 ml NEB Q6HRT [facility] Last Admin: 10/09/17 07:47 Dose: 2.5 ml Lactase (Lactaid) 1 tab PO TIDP PRN PRN Reason: INDIGESTION Levalbuterol HCl (Xopenex) 0.63 mg NEB Q6HRT [facility] Last Admin: 10/09/17 07:47 Dose: 0.63 mg Magnesium Hydroxide (Milk Of Magnesia) 30 ml PO DAILYP PRN PRN Reason: Constipation Montelukast Sodium (Singular) 10 mg PO HS [facility] Last Admin: 10/08/17 21:16 Dose: 10 mg Ondansetron HCl (Zofran) 4 mg IV Q4HP PRN PRN Reason: Nausea And Vomiting Polyethylene Glycol (Miralax) 17 gm PO DAILYP PRN PRN Reason: Constipation Last Admin: 10/08/17 10:20 Dose: 17 gm Simvastatin (Zocor) 10 mg PO DAILY [facility] Last Admin: 10/09/17 10:20 Dose: 10 mg Tramadol HCl (Ultram) 50 mg PO Q6HP PRN PRN Reason: Pain Last Admin: 10/09/17 04:49 Dose: 50 mg Verapamil HCl (Calan Sr) 120 mg PO DAILY [facility] Last Admin: 10/09/17 10:30 Dose: 120 mg Vitamin D (Vitamin D3) 4,000 unit PO DAILY [facility] Last Admin: 10/09/17 10:19 Dose: 4,000 unit Medical - PN: A/P - Time Spent With Patient Total time spent is greater than 50% in coordination of care (as documented) at patient's floor/unit and/or counseling patient: - Narrative A/P Narrative: A/P Altered Mental status: Resolved, etiology? no e/o infectious etiology, blood cx was coag neg staph, vanco x 1 given, likely contaminant, procalcitonin neg, wbc normal, pt repeat bc pending. Continue with IVF. constipatin: miralax, bowel regime, Weakness: Continue working with PT, Failure to thrive: caloric intake monitoring, for now, consider appetite stimulation. Back pain/ Buttock pain: Get Pelvis x ray, Dementia/ Behavioral issues/ Hallucinations: On aricept, olanzapine stopped and valproate added as per last neuro reccs. as antipsychotics can worsen Parkinson symptoms. afib/ flutter: Rate well controlled, bradycardic actually on tele, will cut back verapramil from 180 to 120mg, low hr may contribute to fatigue, h/o CHF: clinically not in heart failure, d/c salt restriction given primary concern at this time is caloric intake, monitor, avoid NSAIDS, Hypertension. Blood pressure is stable Continue to monitor. on verapramil, dose cut from 180 to 120 CODE STATUS: Patient states she would like to remain a full code, but would not want to be on long-term life support. She says she would like her nephew, who lives in [place], to act as her POA. Unfortunately, she cannot recall his name at the moment. We are trying to track that down. DVT prophylaxis: Subcu heparin. Medical - PN: Qual - Stroke Symptom Onset Unknown: No - VTE Deep Vein Thrombosis/Pulmonary Embolism Present on Admission: No
[2017-10-09] MEDS: MONTELUKAST 10 MG TABLET PO SCH (21:12)
[2017-10-09] MEDS: CELECOXIB 100 MG CAPSULE PO SCH (21:17)
[2017-10-09] MEDS ORDERED: BISACODYL 10 MG SUPP.RECT PR PRN (22:59)
[2017-10-10] MEDS: LEVALBUTEROL 0.63 MG/3 ML AMPUL.NEB NEB SCH ×3 (00:50→13:49)
[2017-10-10] MEDS: IPRATROPIUM 2.5 ML AMPUL.NEB NEB SCH ×3 (00:50→13:49)
[2017-10-10] MEDS: DEXTROSE 5%-1/2NS 1,000 ML IV SCH (02:56)
[2017-10-10] MEDS ORDERED: DEXTROSE 50% 50 ML VIAL IV ONE ×3 (04:51→13:32)
--- NOTE | 2017-10-10 04:58 | Internal Med Progress Note ---
Medical - PN: Subj Patient information: Note initiated : 10/10/17 at 4:47 am Service Date, if different from initiated Date: [] Patient: Erica Gomez a 77 y/o F admitted on 10/07/17 for Fall, Decreased LOC/ AFib, Leukocytosis,Dehydration. Chief Complaint: [] Interval history: October 07, 2017: History of present illness: Ms. Gomez is a 77 year old female who lives at [facility]. She reportedly had a fall today in the bathroom, falling forward and hitting her face on the toilet. She was noted to have altered mental status by the staff, and sent to the emergency room for evaluation. She is much less able to talk and follow commands than is her baseline. After arriving to the floor, the patient was actually quite awake and alert, and able to answer most questions. She has a very severe tremor, both resting and with intention. She reports this is due to her severe Parkinson's. She does remember that she fell today, but cannot recall exactly why. She says she had a little trouble thinking straight after striking her head, but thinking is clearer currently. Her main complaint currently is that she is quite insistent that she needs MiraLAX right now, as she is constipated. She cannot tell me when her last bowel movement was. She says her urine has been darker than usual the last few days, but she denies decreased intake of food or liquids. She denies recent fever or chills, headaches or dizziness, blurry vision, ear pain or discharge, sinus pain, sore throat or cough. She denies chest pain or palpitations, shortness of breath. She says she is having some mild abdominal discomfort, which she blames on constipation. She denies nausea or vomiting, diarrhea, bright red blood per rectum. She denies painful urination. The ER MD tells me that the last time she was here, [facility] wanted her moved to a higher level of care, but the patient declined and requested physical therapy instead. October 08: -Today, the patient says she is feeling a bit better. She does not feel confused today. She admits that she has not been doing so well at her living facility and that she may need more help. She says that yesterday she did not call staff to help her get out of bed to go to the bathroom, and she thinks she fell because she did not have that help. She is not quite sure why she did not call for help. -She had some abdominal discomfort last night, and they did a bladder scan which showed greater than a 500 mL of retained urine. There were getting ready to place a Ocasio catheter, and the patient was suddenly incontinent of urine, and then her post void was only about 100 mL. She is not normally incontinent of urine. -Otherwise today, she denies fever or chills, chest pain or shortness of breath , cough, nausea or vomiting, diarrhea. She does not believe she has had a bowel movement yet, and requests a half dose of MiraLAX today. White blood cell count is back to normal this morning. However potassium is now a bit high Dec Patient seen examined, feeling not so good, her buttock was hurting her, denies any other complaints, still has some constipation, asked for another miralax. She is having poor oral intake and was not doing so well before she came in, will continue with rehab and do a calorie count to see if she is having adequate intake. Will consider appetite stimulants. Dec Patient seen examined, was called in early AM today to evaluate patient who was not at her baseline, she was altered, did not open eyes to commands, and did not follow any commands. She was not responsive. Her usual tremors were absent, her VS were stable, afebrile HR 45-50. osat 98%, CXR done was neg, ABG unremarkable, chr co2 retention ph 7.41/55/77, labs in process On my eval the patient had her eyes opened, she did try to follow commands, she had minimal movement in both upper extremities, her arms wre flexed, lower extremities extended. Decorticicate positioning, she did have response to pain however, GCS initially on my eval was 4, but it was improving with time, by 20 mins in she was able to speak softly, follow some commands and was able to respond to pain stimuli glucose was 80, an amp 25gms of glucose given Plan to get CT head and CTA head and neck. Exam did not show any obvious focal, no facial palsy noted, no weakness in one side noted. the patients presentation appears similar to the patients initial presentation. Pertinent ROS: unablel Additional PMFSH (Level 3 Only): Medical History Strain of lumbar region (Acute) Chest pain (Acute) Chest pain at rest (Acute) Abnormal ECG (Acute) Atrial fibrillation, chronic (Chronic) Elevated brain natriuretic peptide (BNP) level (Acute) COPD (chronic obstructive pulmonary disease) (Chronic) Weakness (Acute) Weight loss (Acute) Inactivity (Acute) Tremor (Acute) Parkinson disease, symptomatic (Chronic) Mental status change (Acute) Dehydration (Acute) Leukocytosis (Acute) Parkinson disease (Acute) Bradycardia (Acute) - Constitutional Vitals: Vital Signs Temp Pulse Resp BP Pulse Ox 97.6 F 39 L 18 139/88 97 10/10/17 04:28 10/09/17 21:19 10/10/17 00:00 10/10/17 04:27 10/10/17 04:27 Period Temp Pulse Resp BP Sys/Cobos Pulse Ox Last 24 Hr 97.6 F-98.1 F 39-98 11-24 75-150/44-88 94-100 Intake and Output 10/09/17 10/09/17 10/10/17 13:59 21:59 05:59 Intake Total 1220 / 1220 350 / 350 1430 / 1430 Output Total 600 / 600 Balance 1220 / 1220 -250 / -250 1430 / 1430 Weight 127 lb 9.6 oz Patient Weight 10/10/17 05:59 Weight 127 lb 9.6 oz Intake & Output: Intake & Output 10/09/17 10/09/17 10/10/17 13:59 21:59 05:59 Intake Total 1220 / 1220 350 / 350 1430 / 1430 Output Total 600 / 600 Balance 1220 / 1220 -250 / -250 1430 / 1430 Weight 127 lb 9.6 oz Intake: IV 1000 / 1000 1250 / 1250 Dextrose 5%-1/2Ns IV Solution 1 1000 / 1000 1000 / 1000 ,000 ml @ 100 mls/hr IV .Q10H [facility] Rx#:[id number] Oral 220 / 220 350 / 350 180 / 180 Output: Urine Catheter Amount 600 / 600 Other: Meal Breakfast Dinner Percent of Meal Consumed 50% 75% Feeding Ability Total Assistance Total Assistance # Bowel Movements 1 Exam: Constitutional; Afebrile, drowsy, not following commands. Eyes- No icterus, , No periorbital swelling Ears- Ext ear normal, . Neck- Midline trachea, supple Respiratory system: Air Entry equal on both sides, No crackles or wheezing, no rhonchi. CVS- Rate rhythm irregular, S1,S2 heard, no gallop, no rub. Abdomen- Soft nontender abdomen, no organomegaly, no tenderness, no guarding or rigidity, [employer]ER- see HPI Medical - PN: Obj Da - Labs CBC & Chem 7: 10/09/17 03:55 10/09/17 03:55 Labs: Abnormal Lab Results 10/09/17 10/08/17 10/07/17 03:55 07:55 12:32 WBC Seg Neutrophils % Lymphocytes % Potassium 5.2 H Carbon Dioxide 21 L Anion Gap BUN Creatinine 0.5 L 0.5 L Glucose 114 H Calcium 8.4 L Phosphorus 2.1 L 2.4 L GGT 4 L 4 L AST 38 H Lactate Dehydrogenase 344 H NT-Pro-B Natriuret Pep Total Protein 4.9 L 4.8 L Globulin 1.5 L 1.6 L Urine Protein 100 A Urine Ketones 20 A Urine Urobilinogen 2.0 A Amorphous Crystals Few A Hyaline Casts 24 H Urine Mucus Many A 10/07/17 10/07/17 10/07/17 09:51 09:51 09:51 WBC 18.2 H Seg Neutrophils % 92 H Lymphocytes % 6 L Potassium Carbon Dioxide Anion Gap 19.0 H BUN 31 H Creatinine Glucose 127 H Calcium 10.9 H Phosphorus GGT AST Lactate Dehydrogenase NT-Pro-B Natriuret Pep 1366.0 H Total Protein Globulin Urine Protein Urine Ketones Urine Urobilinogen Amorphous Crystals Hyaline Casts Urine Mucus Meds: Medications Acetaminophen (Tylenol) 650 mg PO Q6HP PRN PRN Reason: PAIN/FEVER > 101 Last Admin: 10/10/17 01:26 Dose: 650 mg Benztropine Mesylate (Cogentin) 1 mg PO BID [facility] Last Admin: 10/09/17 21:12 Dose: 1 mg Bisacodyl (Dulcolax) 10 mg SD Q2-3DAYS PRN PRN Reason: Constipation Budesonide (Pulmicort) 0.5 mg NEB Q12 [facility] Last Admin: 10/09/17 21:12 Dose: 0.5 mg Calcium Carbonate/Glycine (Tums) 500 mg CHEWED BID [facility] Last Admin: 10/09/17 21:57 Dose: Not Given Celecoxib (Celebrex) 100 mg PO HS [facility] Last Admin: 10/09/17 21:17 Dose: Not Given Cetirizine HCl (Zyrtec) 10 mg PO DAILY [facility] Last Admin: 10/09/17 10:20 Dose: 10 mg Clopidogrel Bisulfate (Plavix) 75 mg PO DAILY [facility] Last Admin: 10/09/17 10:20 Dose: 75 mg Diagnostic Test (Pha) (Accu-Chek) 1 each FS ONCE ONE Stop: 10/10/17 04:32 Divalproex Sodium (Depakote Er) 250 mg PO BID [facility] Last Admin: 10/09/17 21:12 Dose: 250 mg Docusate Sodium (Colace) 100 mg PO BID PRN PRN Reason: Constipation Donepezil HCl (Aricept) 10 mg PO DAILY [facility] Last Admin: 10/09/17 10:20 Dose: 10 mg Famotidine (Pepcid) 20 mg PO DAILY [facility] Last Admin: 10/09/17 10:20 Dose: 20 mg Gabapentin (Neurontin) 100 mg PO BID [facility] Last Admin: 10/09/17 21:12 Dose: 100 mg Heparin Sodium (Porcine) (Heparin) 5,000 unit SQ Q12 [facility] Last Admin: 10/09/17 21:17 Dose: Not Given Dextrose/Sodium Chloride (Dextrose 5%-1/2ns Iv Solution) 1,000 mls @ 100 mls/ hr IV .Q10H [facility] Last Admin: 10/10/17 02:56 Dose: 100 mls/hr Ipratropium [place] (Atrovent) 2.5 ml NEB Q6HRT [facility] Last Admin: 10/10/17 00:50 Dose: 2.5 ml Lactase (Lactaid) 1 tab PO TIDP PRN PRN Reason: INDIGESTION Levalbuterol HCl (Xopenex) 0.63 mg NEB Q6HRT [facility] Last Admin: 10/10/17 00:50 Dose: 0.63 mg Magnesium Hydroxide (Milk Of Magnesia) 30 ml PO DAILYP PRN PRN Reason: Constipation Montelukast Sodium (Singular) 10 mg PO HS [facility] Last Admin: 10/09/17 21:12 Dose: 10 mg Ondansetron HCl (Zofran) 4 mg IV Q4HP PRN PRN Reason: Nausea And Vomiting Polyethylene Glycol (Miralax) 17 gm PO DAILYP PRN PRN Reason: Constipation Last Admin: 10/08/17 10:20 Dose: 17 gm Simvastatin (Zocor) 10 mg PO DAILY [facility] Last Admin: 10/09/17 10:20 Dose: 10 mg Tramadol HCl (Ultram) 50 mg PO Q6HP PRN PRN Reason: Pain Last Admin: 10/09/17 21:52 Dose: 50 mg Verapamil HCl (Calan Sr) 120 mg PO DAILY [facility] Last Admin: 10/09/17 10:30 Dose: 120 mg Vitamin D (Vitamin D3) 4,000 unit PO DAILY [facility] Last Admin: 10/09/17 10:19 Dose: 4,000 unit Medical - PN: A/P - Time Spent With Patient Total time spent is greater than 50% in coordination of care (as documented) at patient's floor/unit and/or counseling patient: - Narrative A/P Narrative: A/P Altered Mental status: etiology? this is the second episode, first noted in presence of myself, the patient does have absent tremors during these spells, cold stares, and not responsive to external stimuli, she seems to be slowly recovering just as she did with the initial presentation. will repeat CT head and get CTA head and neck, thought suspicioun for CVA is low hence stroke protocol not activated, but CT is ordered stat. machine operator slitter technician is also not available to do the CT scan and is being called in. Given her transient presentation, wonder if she is having a seizure episode during these spells, which gradually resolves, prolactin ordered. Will get eeg Parkinsons disease: Patient med list does not have anti parkinsons drugs, just drugs for dementia, prob list from pcp only lists tremors. Was seen by neurologist last month, and Dr everett note mentions parkinsons disease, and patient to be started on pramipixole, I do not see that in the home list, will start while in hospital to see how she responds. Not sure if the above manifestations are part of her parkinsons disease. constipatin: miralax, bowel regime, Weakness: Continue working with PT, OT/ Failure to thrive: caloric intake monitoring, for now, consider appetite stimulation. Back pain/ Buttock pain: Get Pelvis x ray, Dementia/ Behavioral issues/ Hallucinations: On aricept, olanzapine stopped and valproate added as per last neuro reccs. as antipsychotics can worsen Parkinson symptoms. afib/ flutter: Rate well controlled, bradycardic actually on tele, will cut back verapramil from 180 to 120mg, low hr may contribute to fatigue, h/o CHF: clinically not in heart failure, d/c salt restriction given primary concern at this time is caloric intake, monitor, avoid NSAIDS, Hypertension. Blood pressure is stable Continue to monitor. on verapramil, dose cut from 180 to 120 CODE STATUS: Patient states she would like to remain a full code, but would not want to be on long-term life support. She says she would like her nephew, who lives in [place], to act as her POA. Unfortunately, she cannot recall his name at the moment. We are trying to track that down. DVT prophylaxis: Subcu heparin. Medical - PN: Qual - Stroke Symptom Onset Unknown: No - VTE Deep Vein Thrombosis/Pulmonary Embolism Present on Admission: No
[2017-10-10 05:06] LABS: Basophils # (Auto) 0.1 K/mcL (0.0-0.3); Basophils % (Auto) 1.4 % (0.0-2.0); Eosinophils # (Auto) 0.2 K/mcL (0.0-0.7); Eosinophils % (Auto) 2.7 % (0.0-7.0); Granulocytes % (Auto) 55.6 % (38.0-78.0); Lymphocytes # (Auto) 2.3 K/mcL (1.5-4.8); Lymphocytes % (Auto) 30.7 % (15.5-49.0); Mean Cell Volume 90.5 fL (80.0-100.0); Mean Corpuscular HGB Conc 32.7 g/dL (31.0-36.0); Mean Corpuscular Hemoglobin 29.6 pg (26.0-34.0); Monocytes # (Auto) 0.7 K/mcL (0.1-0.9); Monocytes % (Auto) 9.6 % (1.0-12.0); Platelet Count 158 K/mcL (140-440); RBC 4.43 M/mcL (4.00-5.20); Red Cell Distribution Width 12.7 % (11.5-14.5)
[2017-10-10 05:22] LABS: ALT/SGPT 15 U/l (0-40); Albumin 3.4 gm/dL (3.2-5.2); Albumin/Globulin Ratio 1.9 (1.0-2.3); Alkaline Phosphatase 48 U/L (39-117); Bilirubin,Direct < 0.2 mg/dL (0.0-0.3); Blood Urea Nitrogen 7 mg/dl (8-23); Gamma Glutamyl Transpeptidase 3 U/L (5-36); Magnesium 1.9 mg/dL (1.6-2.5); Uric Acid 4.6 mg/dL (2.5-8.0)
--- NOTE | 2017-10-10 06:15 | XRay Report ---
CLINICAL INFORMATION: Trauma with decreased level consciousness COMPARISON: 10/08/2017. FINDINGS: Heart size, mediastinum and pulmonary vessels are normal. Lungs are clear. No effusions. Bones and soft tissues normal IMPRESSION: Negative Interpreted and Authenticated by: Abdirahman Crawford 10/10/17
--- NOTE | 2017-10-10 06:19 | Cat Scan Report ---
CLINICAL INFORMATION: Trauma on anticoagulation with decreased mental status COMPARISON: Head CT three days prior: 12/08/2016 TECHNIQUE: 2.5 mm helical slices were obtained in the skull base to vertex. Following reconstruction, axial reformatted images were reviewed at bone and parenchymal windows. The exam was performed using radiation dose optimization techniques including, but not limited to, automated exposure control, adjustment of the mA and/or kV according to patient size and use of iterative reconstruction technique. FINDINGS: The ventricles, sulci, fissures, and cisterns are symmetrically enlarged compatible with mild age-related atrophy. No subdural hemorrhage or other extra-axial fluid collections identified. Moderate chronic ischemic changes in the throughout the cerebral white matter are similar previous study. There is no intracerebral hemorrhage, mass effect, edema or other acute finding. Bone windows show no fracture or other osseous abnormality IMPRESSION: Mild atrophy and chronic ischemic changes in the cerebral white matter typical for age and similar to previous study. There is no intracerebral hemorrhage or other post traumatic change. Interpreted and Authenticated by: Abdirahman Crawford 10/10/17
[2017-10-10] MEDS: BUDESONIDE 0.5 MG/2 ML AMPUL.NEB NEB SCH (07:36)
[2017-10-10] MEDS ORDERED: PRAMIPEXOLE 0.25 MG TABLET PO SCH (09:00)
[2017-10-10] MEDS: VERAPAMIL 120 MG TAB.XL.24H PO SCH (09:05)
[2017-10-10] MEDS: CLOPIDOGREL 75 MG TABLET PO SCH (09:05)
[2017-10-10] MEDS: DIVALPROEX SODIUM 250 MG TAB.ER.24H PO SCH (09:05)
[2017-10-10] MEDS: BENZTROPINE 1 MG TABLET PO SCH (09:05)
[2017-10-10] MEDS: CETIRIZINE 10 MG TABLET PO SCH (09:06)
[2017-10-10] MEDS: SIMVASTATIN 10 MG TABLET PO SCH (09:06)
[2017-10-10] MEDS: FAMOTIDINE 20 MG TABLET PO SCH (09:06)
[2017-10-10] MEDS: CALCIUM CARBONATE 500 MG TAB.CHEW CHEWED SCH (09:06)
[2017-10-10] MEDS: GABAPENTIN 100 MG CAPSULE PO SCH (09:07)
[2017-10-10] MEDS: DONEPEZIL 10 MG TABLET PO SCH (09:08)
[2017-10-10] MEDS: HEPARIN 5,000 UNIT/ML VIAL SQ SCH ×2 (09:08→09:09)
[2017-10-10] MEDS: VITAMIN D3 1,000 UNIT TABLET PO SCH (09:08)
[2017-10-10] MEDS ORDERED: LORazepam 2 MG/ML VIAL IV ONE (10:13)
[2017-10-10] MEDS ORDERED: levETIRAcetam 500 MG in 0.9 % SODIUM CHLORIDE 100 ML IV SCH (10:14)
[2017-10-10] MEDS ORDERED: LORazepam 2 MG/ML VIAL ONE (10:19)
--- NOTE | 2017-10-10 12:28 | Electroencephalogram Report ---
DATE OF EE10/10/2017 HISTORY: The patient is a 77-year-old female with a history of Parkinson's disease admitted for right-sided tremor. She became unresponsive with minimal __ response and some eye deviation. TECHNICAL SUMMARY: This is a routine EEG performed using the 10/20 International System of Electrode Placement. DESCRIPTION: There was no posterior dominant rhythm. The background consisted of a mixture of [id number] amplitude delta and theta activity. No normal sleep elements were recorded. Activation procedures were not performed. IMPRESSION: This EEG is abnormal because of severe diffuse slowing of the background indicative of a severe encephalopathy. No lateralized or epileptiform abnormalities were seen. CN:judd Job ID: [id number] Doc ID: [id number] Francois Pizano MD
[2017-10-10] MEDS ORDERED: 0.9 % SODIUM CHLORIDE 500 ML IV ONE (13:31)
[2017-10-10] MEDS ORDERED: IOPAMIDOL 100 ML BOTTLE IJ ONE (14:20)
--- NOTE | 2017-10-10 14:24 | XRay Report ---
CLINICAL INFORMATION: PICC position COMPARISON: 10/10/2017 0424 hours FINDINGS: ] PICC line tip overlies the SVC right atrial junction. The heart is borderline enlarged but unchanged. Mediastinum and pulmonary vessels are normal. Lungs are clear. No effusions IMPRESSION: PICC line in satisfactory position. No acute disease Interpreted and Authenticated by: Abdirahman Crawford 10/10/17
--- NOTE | 2017-10-10 14:42 | Magnetic Resonance Report ---
CLINICAL INFORMATION: Unresponsive COMPARISON: None. TECHNIQUE:Sagittal T1 FLAIR, axial T1 FLAIR, T2 FLAIR propeller, T2 propeller, gradient, diffusion, ADC and coronal T2 weighted images were acquired. FINDINGS: There is a large acute nonhemorrhagic infarct in the right MCA distribution involving the posterior frontal lateral temporal and anterior parietal lobes. The entire region exhibits restricted diffusion. There is there is gyral swelling and slight elevated signal on T2 and FLAIR. There is increased signal within the M1 branch of the right middle cerebral artery extension into all distal middle cerebral artery branches. There is absent signal void within the same areas on T2-weighted images. These are consistent with acute thrombus within the right middle cerebral artery. Ventricles sulci fissures and cisterns are symmetrically enlarged bowel with mild age atrophy. There is patchy chronic ischemic changes in the cerebral white matter - expected for age. IMPRESSION: 1. 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 Interpreted and Authenticated by: Abdirahman Crawford 10/10/17
--- NOTE | 2017-10-10 15:14 | Transfer Summary ---
Transfer Discharge Sum: Prov Patient information: Note initiated : 10/10/17 at 3:10 pm Service Date, if different from initiated Date: [] Patient: Erica Gomez 77 y/o F admitted on 10/07/17 for Fall, Decreased LOC/ AFib, Leukocytosis,Dehydration. Chief Complaint: [] Date of admission: 10/07/17 13:36 Discharge Date: 10/10/17 Primary care physician: Shayla Shen Admitting clinician: Marlene Moore Consults: 10/07/17 13:08 Consult to Physician [CONS] Stat Comment: Consulting Provider: Marlene Moore Reason For Exam: Physician to Consult Discharging clinician: Davis Gerber Receiving physician/facility: Dr Sarabia Hospitalist Dr Pike- Consulting Neurologist. Transfer Discharge Sum: Med - Medications Active and Home Medications: Home Medications acetaminophen 160 mg/5 mL oral suspension See Dose Instructions PO .COMPLEX PRN 30 Days #900 ml 04/20/15 [Rx Confirmed 10/07/17] lactase 9,000 unit chewable tablet 9,000 unit PO TID PRN #30 tab 05/23/15 [Rx Confirmed 10/07/17] traMADol [Ultram] 50 mg PO Q6HP PRN #20 tab 04/16/16 [Rx Confirmed 10/07/17] Anoro Ellipt 1 puff INH DAILY 08/15/17 [History Confirmed 10/07/17] Benztropine [Cogentin] 1 mg PO BID 08/15/17 [History Confirmed 10/07/17] Budesonide [Pulmicort] 3 puff INH BID 08/15/17 [History Confirmed 10/07/17] Calcium Carbonate 600 mg PO BID 08/15/17 [History Confirmed 10/07/17] Celecoxib [Celebrex] 100 mg PO HS 08/15/17 [History Confirmed 10/07/17] Cetirizine [ZyrTEC] 10 mg PO DAILY 08/15/17 [History Confirmed 10/07/17] Cholecalciferol (Vitamin D3) [Vitamin D] 4,000 unit PO DAILY 08/15/17 [History Confirmed 10/07/17] Clopidogrel Bisulfate [Plavix] 75 mg PO DAILY 08/15/17 [History Confirmed ] Donepezil [Aricept] 10 mg PO DAILY 08/15/17 [History Confirmed 10/07/17] Famotidine [Pepcid] 20 mg PO DAILY 08/15/17 [History Confirmed 10/07/17] Gabapentin [Neurontin] 100 mg PO BID 08/15/17 [History Confirmed 10/07/17] Levalbuterol Tartrate [Levalbuterol Tartrate Hfa] 15 gm IH BID 08/15/17 [ History Confirmed 10/07/17] Montelukast [Singular] 10 mg PO HS 08/15/17 [History Confirmed 10/07/17] OLANZapine [Zyprexa] 15 mg PO HS 08/15/17 [History Confirmed 10/07/17] Simvastatin [Zocor] 10 mg PO DAILY 08/15/17 [History Confirmed 10/07/17] Spironolactone [Aldactone] 25 mg PO DAILY 08/15/17 [History Confirmed 10/07/17] Verapamil [Calan Sr] 180 mg PO DAILY 08/15/17 [History Confirmed 10/07/17] Active Medications Acetaminophen (Tylenol) 650 mg PO Q6HP PRN PRN Reason: PAIN/FEVER > 101 Last Admin: 10/10/17 01:26 Dose: 650 mg Benztropine Mesylate (Cogentin) 1 mg PO BID [facility] Last Admin: 10/10/17 09:05 Dose: 1 mg Bisacodyl (Dulcolax) 10 mg NV Q2-3DAYS PRN PRN Reason: Constipation Budesonide (Pulmicort) 0.5 mg NEB Q12 [facility] Last Admin: 10/10/17 07:36 Dose: 0.5 mg Calcium Carbonate/Glycine (Tums) 500 mg CHEWED BID [facility] Last Admin: 10/10/17 09:06 Dose: 500 mg Celecoxib (Celebrex) 100 mg PO HS [facility] Last Admin: 10/09/17 21:17 Dose: Not Given Cetirizine HCl (Zyrtec) 10 mg PO DAILY [facility] Last Admin: 10/10/17 09:06 Dose: 10 mg Clopidogrel Bisulfate (Plavix) 75 mg PO DAILY [facility] Last Admin: 10/10/17 09:05 Dose: 75 mg Divalproex Sodium (Depakote Er) 250 mg PO BID [facility] Last Admin: 10/10/17 09:05 Dose: 250 mg Docusate Sodium (Colace) 100 mg PO BID PRN PRN Reason: Constipation Donepezil HCl (Aricept) 10 mg PO DAILY [facility] Last Admin: 10/10/17 09:08 Dose: 10 mg Famotidine (Pepcid) 20 mg PO DAILY [facility] Last Admin: 10/10/17 09:06 Dose: 20 mg Gabapentin (Neurontin) 100 mg PO BID [facility] Last Admin: 10/10/17 09:07 Dose: 100 mg Heparin Sodium (Porcine) (Heparin) 5,000 unit SQ Q12 [facility] Last Admin: 10/10/17 09:09 Dose: Not Given Dextrose/Sodium Chloride (Dextrose 5%-1/2ns Iv Solution) 1,000 mls @ 100 mls/ hr IV .Q10H [facility] Last Admin: 10/10/17 02:56 Dose: 100 mls/hr Levetiracetam 500 mg/ Sodium (Chloride) 105 mls @ 200 mls/hr IV Q12 [facility] Last Infusion: 10/10/17 13:34 Dose: Infused Ipratropium [place] (Atrovent) 2.5 ml NEB Q6HRT [facility] Last Admin: 10/10/17 13:49 Dose: Not Given Lactase (Lactaid) 1 tab PO TIDP PRN PRN Reason: INDIGESTION Levalbuterol HCl (Xopenex) 0.63 mg NEB Q6HRT [facility] Last Admin: 10/10/17 13:49 Dose: Not Given Magnesium Hydroxide (Milk Of Magnesia) 30 ml PO DAILYP PRN PRN Reason: Constipation Montelukast Sodium (Singular) 10 mg PO HS [facility] Last Admin: 10/09/17 21:12 Dose: 10 mg Ondansetron HCl (Zofran) 4 mg IV Q4HP PRN PRN Reason: Nausea And Vomiting Polyethylene Glycol (Miralax) 17 gm PO DAILYP PRN PRN Reason: Constipation Last Admin: 10/08/17 10:20 Dose: 17 gm Pramipexole Dihydrochloride (Mirapex) 0.125 mg PO BID [facility] Stop: 10/16/17 21:01 Last Admin: 10/10/17 09:07 Dose: 0.125 mg Pramipexole Dihydrochloride (Mirapex) 0.125 mg PO TID [facility] Simvastatin (Zocor) 10 mg PO DAILY [facility] Last Admin: 10/10/17 09:06 Dose: 10 mg Tramadol HCl (Ultram) 50 mg PO Q6HP PRN PRN Reason: Pain Last Admin: 10/09/17 21:52 Dose: 50 mg Verapamil HCl (Calan Sr) 120 mg PO DAILY [facility] Last Admin: 10/10/17 09:05 Dose: 120 mg Vitamin D (Vitamin D3) 4,000 unit PO DAILY [facility] Last Admin: 10/10/17 09:08 Dose: 4,000 unit Transfer Discharge Sum: Hosp Hospital course: Ms. Gomez is a 77 year old female who lives at [facility]. She reportedly had a fall on the 10/07 in the bathroom, falling forward and hitting her face on the toilet. She was noted to have altered mental status by the staff, and sent to the emergency room for evaluation. She is much less able to talk and follow commands than is her baseline. After arriving to the floor, the patient was actually quite awake and alert, and able to answer most questions. She has a very severe tremor, both resting and with intention. She reports this is due to her severe Parkinson's. She does remember that she fell, but cannot recall exactly why. She says she had a little trouble thinking straight after striking her head, but thinking was improving. Her main complaint currently is that she is quite insistent that she needs MiraLAX right now, as she is constipated. She cannot tell me when her last bowel movement was. She says her urine has been darker than usual the last few days, but she denies decreased intake of food or liquids. She denies recent fever or chills, headaches or dizziness, blurry vision, ear pain or discharge, sinus pain, sore throat or cough. She denies chest pain or palpitations, shortness of breath. She says she is having some mild abdominal discomfort, which she blames on constipation. She denies nausea or vomiting, diarrhea, bright red blood per rectum. She denies painful urination. The patient clinically improved, and was near back to baseline on the she complained of constipation, and had sone urine issues, plan was to have her work with physical therapy and see if she would improve. , on the she continued to improve and had a non focal exam, she was able to answer questions appropriately. Her home medication list was reviewed and it seems her neurologist had started her on pramipaxole and stopped olanzapine, she was also started on divalproex, these changes were not seen in the med list from assisted living and these changes were instituted here. Today in [place], pt was noted not be her baseline, she was altered, did not open eyes to commands, and did not follow any commands. She was not responsive. Her usual tremors were absent, her VS were stable, afebrile HR 45- 50. osat 98%, CXR done was neg, ABG unremarkable, chr co2 retention ph 7.41/55/77 On my eval the patient had her eyes opened, she did try to follow commands, she had minimal movement in both upper extremities, her arms were flexed, lower extremities extended. Decorticate positioning, she did have response to pain however, GCS initially on my eval was 4, but it was improving with time, by 20 mins in she was able to speak softly, follow some commands and was able to respond to pain stimuli glucose was 80, an amp 25gms of glucose given CT head was reported as negative. CTA head was ordered. Exam did not show any obvious focal, no facial palsy noted, no weakness on one side noted. the patients presentation appears similar to the patients initial presentation. The patient had improved by morning and seemingly was able to converse with the nursing staff, took her AM meds, around 10 clock and another episode of AMS, with staring spell, ativan was given, keppra 500mg given with the thought that this is secondary to seizures. MRI brain done and CTA head and neck done. MRI brain reported acute CVA on right side, THe CTA head official report pending , but did show thrombosis vs stenosis of M1 branch of mca? Tele stroke contacted , Dr Elmore evaluated the patient and felt that the AM CT had changes of right MCA territory and felt that she is not a candidate for tpa or neurosurgical intervention, but advised us to transfer pt to N[facility]U for intense monitoring. Patient is full c ode and was presented to Dr Pike and Dr sarabia, who graciously accpeted the patient for further management. patient has no close family availble, [place], and neice / nephew [place] of [place] Her other mediccal issues are afib/ aflutter, she has remained bradycardic, with HR between 45-70 at times, she is on verapramil for same, home dose was 180 , which was cut to 120 today. She may need lower dosing. The patient has h/o parkinsonism, and dementia, and follows with Dr Bernardo Fleming ?neurologist [facility] (their clinic was closed today) - Time Spent with Patient Total time spent providing and/or coordinating transfer services: Greater than 30 minutes Transfer Discharge Sum: Exam - Constitutional Vitals: Vital Signs Temp Pulse Pulse Resp BP Pulse Ox 10/10/17 14:11 118/48 10/10/17 14:02 12 110/65 87 L 10/10/17 13:51 91/44 96 10/10/17 13:40 12 117/42 100 10/10/17 13:31 90/35 100 10/10/17 13:21 98/39 100 10/10/17 13:11 97/41 100 10/10/17 13:01 14 122/49 96 10/10/17 13:00 130/48 98 10/10/17 11:41 14 120/54 95 10/10/17 11:31 102/48 100 10/10/17 11:20 16 130/74 100 10/10/17 11:11 111/46 100 10/10/17 11:01 109/72 100 10/10/17 10:51 125/49 100 10/10/17 10:42 100 10/10/17 10:41 110/49 100 10/10/17 10:31 109/44 100 10/10/17 10:28 98/49 97 10/10/17 10:20 14 141/110 99 10/10/17 09:37 97.8 F 16 132/98 10/10/17 08:04 46 L 16 10/10/17 08:00 98 10/10/17 06:13 124/48 10/10/17 04:46 143/62 98 10/10/17 04:28 97.6 F 10/10/17 04:27 139/88 97 10/10/17 04:22 150/69 100 10/10/17 04:04 94/59 97 10/10/17 04:01 75/45 96 10/10/17 00:00 97.6 F 18 92/63 97 10/09/17 21:19 39 L 11 L 12/21/17 20:02 97.6 F 18 109/44 98 10/09/17 20:00 42 L 18 98 10/09/17 19:30 101/53 10/09/17 19:21 77 13 10/09/17 16:17 98 10/09/17 16:01 98.1 F 77 16 113/54 98 10/09/17 15:39 130/61 97 Intake and Output 10/10/17 10/10/17 10/10/17 05:59 13:59 21:59 Intake Total 1430 / 1430 105 / 105 500 / 500 Output Total 850 / 850 Balance 580 / 580 105 / 105 500 / 500 Intake: IV 1250 / 1250 105 / 105 500 / 500 Sodium Chloride 0.9% 500 ml @ 500 / 500 Wide Open IV BOLUS ONE Rx#: [id number] Dextrose 5%-1/2Ns IV Solution 1 1000 / 1000 ,000 ml @ 100 mls/hr IV .Q10H [facility] Rx#:[id number] Keppra 500 mg In Sodium 105 / 105 Chloride 0.9% 100 ml @ 200 mls/ hr IV Q12 [facility] Rx#:[id number] Oral 180 / 180 Output: Urine Catheter Amount 850 / 850 Other: Weight 127 lb 9.6 oz Patient Weight 10/11/17 05:59 Weight 127 lb 9.6 oz Additional comments: Constitutional; Afebrile, obtunded. Eyes- No icterus, , No periorbital swelling Ears- Ext ear normal, . Neck- Midline trachea, supple Respiratory system: Air Entry equal on both sides, No crackles or wheezing, no rhonchi. CVS- Rate bradycardic, rhythm irregular, S1,S2 heard, no gallop, no rub. Abdomen- Soft nontender abdomen, no organomegaly, no tenderness, no guarding or rigidity, [employer]- AOOx0, not moving any extermity, withdraws to pain. Transfer Discharge Sum: Data Procedures and tests throughout hospitalization: Pending Orders 10/07/17 13:08 Consult to Physician [CONS] Stat 10/07/17 13:12 Resuscitation Status Routine 10/07/17 14:09 Case Management Referral .Routine Admit as Inpatient Routine laboratory monitor CONT Check postvoid residual ONCE Communication order ONCE Elevate head of bed .ROUTINE IV Insertion/Management QSHIFT Intake and Output qshiftio Neuro Checks [Neurological Assessment] 08,12,16,20,00,04 Notify Provider .routine Occult blood, stool, guaic poc .ALL STOOLS VTE Risk: Assessment ONCE Weight Monitoring QHS Acetaminophen [Tylenol] 650 mg PO Q6HP PRN Dextrose 5%-1/2Ns [Dextrose 5%-1/2Ns IV Solution] 1,000 ml IV 100 mls/hr Docusate Sodium [Colace] 100 mg PO BID PRN Magnesium Hydroxide [Milk of Magnesia] 30 ml PO DAILYP PRN Ondansetron [Zofran] 4 mg IV Q4HP PRN traMADol [Ultram] [address] Q[address] PRN RD to Adjust Diet/Supplements as Needed Routine Occupational Therapy Eval & Tx DAILY Physical Therapy Eval & Tx DAILY Incentive Spirometry Assess/Tx Q2HWA Nebulizer management Q6H Oxygen Order .Routine Pulse Oximetry .ROUTINE Speech Therapy Eval & Treat .Routine 10/07/17 14:32 Blood Culture Urgent 10/07/17 15:00 Lactase [Lactaid] 1 tab PO TIDP PRN 10/07/17 16:47 Polyethylene Glycol 3350 [Miralax] 17 gm PO DAILYP PRN 10/07/17 19:00 Ipratropium [Atrovent] 2.5 ml NEB Q6HRT Levalbuterol [Xopenex] 0.63 mg NEB Q6HRT 10/07/17 21:00 Benztropine [Cogentin] 1 mg PO BID Budesonide [Pulmicort] 0.5 mg NEB Q12 Calcium Carbonate [Tums] 500 mg CHEWED BID Celecoxib [Celebrex] 100 mg PO HS Divalproex Sodium [Depakote ER] 250 mg PO BID Gabapentin [Neurontin] 100 mg PO BID Heparin 5,000 unit SQ Q12 Montelukast [Singular] 10 mg PO HS 10/08/17 09:00 Cetirizine [ZyrTEC] 10 mg PO DAILY Clopidogrel [Plavix] 75 mg PO DAILY Donepezil [Aricept] 10 mg PO DAILY Famotidine [Pepcid] 20 mg PO DAILY Simvastatin [Zocor] 10 mg PO DAILY Vitamin D3 4,000 unit PO DAILY 10/08/17 16:16 Dysphagia Mechanical Altered Diet L2 10/08/17 19:04 Blood Culture Urgent 10/09/17 07:55 Calorie Count .ROUTINE 10/09/17 09:00 Verapamil [Calan Sr] 120 mg PO DAILY 10/09/17 22:59 Bisacodyl [Dulcolax] 10 mg NV Q2-3DAYS PRN 10/10/17 04:28 ABG (RT) NOW 10/10/17 04:33 CT angio head Stat CT angio neck Stat 10/10/17 06:36 Midline Insertion/Manangement .ROUTINE 10/10/17 09:00 Pramipexole [Mirapex] 0.125 mg PO BID 10/10/17 10:14 levETIRAcetam [Keppra] 500 mg 0.9 % Sodium Chloride [Sodium Chloride 0.9%] 100 ml IV Q12 10/11/17 04:00 Complete Blood Count DAILY Inpatient Panel DAILY 10/11/17 08:00 Vancomycin,Trough Stat 10/17/17 09:00 Pramipexole [Mirapex] 0.125 mg PO TID Transfer Discharge Sum: A/P - Plan Disposition: Xfer [facility] Quality Measure Queries - VTE Deep Vein Thrombosis/Pulmonary Embolism Present on Admission: No
--- NOTE | 2017-10-10 16:06 | Cat Scan Report ---
CLINICAL INFORMATION: Acute right MCA infarct on MRI. Decreased mental status COMPARISON: None. TECHNIQUE: 80 cc of Isovue-300 were injected intravenously , and using SmartPrep to maximize cerebral arterial opacification, 0.625 mm helical slices were obtained from the skull base through the cerebral vertex. Following reconstruction , sagittal, coronal and axial reformatted images were processed and reviewed at multiple windows and levels. 3D volume rendered and MIP images were acquired at a independent workstation. The exam was performed using radiation dose optimization techniques including, but not limited to, automated exposure control, adjustment of the mA and/or kV according to patient size and use of iterative reconstruction technique. FINDINGS: The M2 segment of the right middle cerebral artery and all distal branches are occluded. The M1 segment, both intracranial internal carotid, left middle cerebral artery, intracranial vertebral, basilar and posterior cerebral arteries and their branches are all unremarkable. 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 This could be either due to embolus or thrombus. Interpreted and Authenticated by: Abdirahman Crawford 10/10/17
--- NOTE | 2017-10-10 16:16 | Cat Scan Report ---
CLINICAL INFORMATION: Acute right MCA infarct COMPARISON: None. TECHNIQUE: 80 cc of Isovue-300 were injected intravenously followed by 40 cc of normal saline flush. Using SmartPrep, 0.625 helical slices were obtained from the thoracic aortic arch through the [place]. Following reconstruction, 2.5 mm sagittal, coronal and axial reformatted images were processed. MIPS , 3-D volume rendering and CPR images were also constructed. The exam was performed using radiation dose optimization techniques including, but not limited to, automated exposure control, adjustment of the mA and/or kV according to patient size and use of iterative reconstruction technique. FINDINGS: The thoracic aortic arch is normal in contour and caliber. Aortic branching is conventional. The brachiocephalic, both subclavian, common, internal and external carotid and both vertebral arteries are widely patent. There is small amounts of calcific plaque in the carotid bifurcation and in the thoracic aortic arch. Soft tissues are unremarkable. Lung apices show moderate centrilobular emphysema changes IMPRESSION: Negative exam - no evidence of occlusion or stenosis within the thoracic aortic arch, carotid, vertebral or subclavian arteries. Interpreted and Authenticated by: Abdirahman Crawford 10/10/17
[2017-10-17] MEDS ORDERED: PRAMIPEXOLE 0.25 MG TABLET PO SCH (09:00)
== END 2017-10-10 17:30 | disposition short-term general hospital (02) | DRG 64 ==
LOC: ED 09:16 → ICU 13:36
PROVIDERS: ADMIT Internal Medicine; ATTEND Internal Medicine